=== PATIENT | female | born 1980 | race Caucasian/White ===

== ENCOUNTER 2016-03-21 | Outpatient (CLI) | payer MEDICAID ==
[2016-03-21 00:45] LABS: APPEARANCE,URINE CLEAR; BILIRUBIN,URINE NEGATIVE (NEGATIVE); GLUCOSE, URINE NEGATIVE (NEGATIVE); KETONES,URINE NEGATIVE (NEGATIVE); LEUKOCYTE ESTERASE,URINE NEGATIVE (NEGATIVE); NITRITE,URINE NEGATIVE (NEGATIVE); PROTEIN,URINE NEGATIVE (NEGATIVE); URINE SPECIFIC GRAVITY 1.012
[2016-03-21] MEDS ORDERED: HYDROXYZINE PAMOATE 50 MG CAPSULE PO ONE (01:08)
[2016-03-21] MEDS ORDERED: HYDROXYZINE PAMOATE 50 MG CAPSULE ONE (01:13)
[2016-03-21 01:31] LABS: URINE BARBITURATES SCREEN NEGATIVE; URINE METHADONE SCREEN NEGATIVE; URINE PHENCYCLIDINE SCREEN NEGATIVE
--- NOTE | 2016-03-21 04:46 | L&D Discharge Summary ---
OB Discharge Summary Datetime Report Generated by CPN: 03/21/2016 04:45 DISCHARGE DIAGNOSIS Diagnosis/Symptoms: Back Pain Treatment/Procedures Other: PO Hydration, Vistiril 50mg PO Gestation: 35.2 Number of Babies in Womb: 1 Parity: 2 DIET/ACTIVITY/RESTRICTIONS Diet: Regular Activity: Normal Activity TEACHING/INSTRUCTIONS/REFERRALS Instructions Given To: pt, fob Instructions Understood: Patient Verbalized Understanding; Support Person Verbalized Understanding Referrals: None Educational Materials- Other: The labor process DISCHARGE INFORMATION Discharged AMA: No Discharge Date/Time: 03/21/2016 01:32 Discharged To: Home (Annotations: Data stored by [facility] on behalf of user) Discharge Provider Name: Dr More Accompanied By: FOB Discharge Method: Ambulatory Condition: Stable FOLLOW UP INFORMATION Follow Up With: sezmi Follow Up On: As Scheduled Follow Up Phone Number: sezmi - Comments: Pt came to as LC for back pain and intermittent lower abdominal pain. SVE done per MD orders, 04/01/-2. Vistiril 50mg PO given with relief. Pt educated on labor process, educated on methods to relieve back pain. Pt and FOB verbalized understanding, demonstrated understanding.
--- NOTE | 2016-03-21 04:46 | L&D Flow Sheet ---
LD Flowsheet Datetime Report Generated by CPN: 03/21/2016 04:45 Datetime: 03/21/2016 01:35 Vital Signs Stage of : Antepartum (Ramila Errichiello, RN) Uterine Activity Monitor Mode: External; Palpation (Ramila Errichiello, RN) Monitor Interventions for UA: [place] Adjusted (Ramila Errichiello, RN) Frequency (min): x1 (Ramila Errichiello, RN) Duration (sec): 70 (Ramila Errichiello, RN) Resting Tone (Palpate): Relaxed (Ramila Errichiello, RN) Assessment A Monitor Mode: External US (Ramila Ishaichiello, RN) Monitor Interventions for FHR: Ultrasound Adjusted (Ramila Errichiello, RN) FHR Baseline Rate : 140 (Ramila Errichiello, RN) FHR Baseline Changes: No Baseline Change (Ramila Errichiello, RN) Variability: Moderate 6-25 bpm (Ramila Errichiello, RN) Accelerations: 15X15 (Ramila Errichiello, RN) Decelerations: None (Ramila Errichiello, RN) Pain Pain Scale: 2 (Ramila Green RN) Pain Goal: 1 (Ramila Green RN) Pain Assessment Comments: relief with Vistiril (Ramila Green RN) Maternal Comments: Pt feels relief with Visitiril 50mg PO, pt states pain is currently 2/5. Monitors turned off to prepare for pt discharge. (Ramila Green RN) Patient Care Patient Position/Activity: Right Tilt; Semi-Fowlers (Ramila Green RN) Communication Communication: RN at Bedside; RN Reviewed Strip (Ramila Green RN) LaborFlag: Antepartum (QS system process) Datetime: 03/21/2016 01:15 NBP Sys/Selena/Mean (mmHg): 101 (QS system process) : 58 (QS system process) : 73 (QS system process) Pulse: 82 (QS system process) Medications Medication Comments: Vistiril 50mg PO (Ramila Errichiello, RN) LaborFlag: Antepartum (QS system process) Datetime: 03/21/2016 01:07 Communication Communication: Call/Page Placed to Provider (Ramila Green RN) Communication Comments: Call placed to Dr More pt made aware of SVE and pt condition. Orders received for Vistiril 50mg PO, OK to d/c to home once pain resolved. (Ramila Green RN) Datetime: 03/21/2016 01:01 Vaginal Exam Dilatation (cm): 1.0 (Ramila Green RN) Effacement (%): 25 (Ramila Green RN) Station: -2 (Ramila Green RN) Exam by: Terri Frazier RN (Ramila Green RN) Cervix, Consistency: Moderate (Ramila Green RN) Cervix, Position: Posterior (Ramila Green RN) Datetime: 03/21/2016:00 Vital Signs Stage of : Antepartum (Ramila Peter, RN) Uterine Activity Monitor Mode: External (Ramila Green RN) Monitor Interventions for UA: [place] Adjusted (Ramila Green RN) Frequency (min): x1 (Ramila Green RN) Duration (sec): 120 (Ramila Green RN) Resting Tone (Palpate): Relaxed (Ramila Green RN) Assessment A Monitor Mode: External US (Ramila Errichiello, RN) FHR Baseline Rate : 145 (Ramila Errichiello, RN) FHR Baseline Changes: No Baseline Change (Ramila Errichiello, RN) Variability: Moderate 6-25 bpm (Ramila Errichiello, RN) Accelerations: 15X15 (Ramila Errichiello, RN) Decelerations: None (Ramila Errichiello, RN) Patient Care Patient Position/Activity: Right Tilt; Semi-Fowlers (Ramila Errichiello, RN) Communication Communication: RN Reviewed Strip (Ramila Errichiello, RN) Datetime: 03/21/2016 00:55 Communication Communication: Call/Page Placed to Provider (Ramila Green RN) Communication Comments: Call placed to Dr Derik MD made aware of pt complaints and EFM. Orders received to check pt's SVE. Orders carried out. (Ramila Green, RN) Datetime: 03/21/2016 00:44 NBP Sys/Selena/Mean (mmHg): 104 (QS system process) : 77 (QS system process) : 85 (QS system process) Pulse: 92 (QS system process) LaborFlag: Antepartum (QS system process) Datetime: 03/21/2016 00:39 Pain Pain Scale: 5 (Ramila Green RN) Pain Presence: Intermittent (Ramila Green RN) Pain Type: Cramping (Ramila Green RN) Pain Location: Abdomen (Ramila Green RN) Pain Goal: 1 (Ramila Green RN) Pain Relief Measures: Comfort Measures (Ramila Green RN) Maternal Assessment Level of Consciousness: Fully Conscious (Ramila Green RN) DTR's/Clonus: DTRs 2+; No Clonus (Ramila Green RN) Headache: Denies (Ramila Green RN) Breath Sounds, Left: Clear and Equal (Ramila Green RN) Breath Sounds, Right: Clear and Equal (Ramila Green RN) Nausea/Vomiting: Denies (Ramila Green RN) RUQ Epigastric Pain: Denies (Ramila Green RN) Comfort Measures: Hot/Cold Pack (Ramila Green RN) Teaching Instructional Method: Verbal; Patient Instructed; Family/Support Person Instructed; Verbalized Understanding (Ramila Green RN) Plan of Care: Plan of Care Discussed (Ramila Green RN) Unit Routine: [place] to Room; Call Khan; Bed; Unit Personnel; Monitoring; Safety/Fall Risk Prevention (Ramila Green RN) LaborFlag: Antepartum (QS system process) Datetime: 03/21/2016 00:37 Vital Signs Stage of : Antepartum (Ramila Errichiello, RN) Respirations: 16 (Ramila Errichiello, RN) Uterine Activity Monitor Mode: External; Palpation (Ramila Errichiello, RN) Monitor Interventions for UA: [place] Adjusted (Ramila Errichiello, RN) Frequency (min): 0 (Ramila Errichiello, RN) Resting Tone (Palpate): Relaxed (Ramila Errichiello, RN) Assessment A Monitor Mode: External US (Ramila Green RN) Monitor Interventions for FHR: Ultrasound Adjusted (Ramila Green RN) FHR Baseline Rate : 145 (Ramila Green RN) FHR Baseline Changes: No Baseline Change (Ramila Green RN) Variability: Moderate 6-25 bpm (Ramila Green RN) Accelerations: 15X15 (Ramila Green, RN) Decelerations: None (Ramila Green, RN) Pain Pain Scale: 5 (Ramila Green RN) Pain Presence: Intermittent (Ramila Green RN) Pain Type: Cramping; Ache (Ramila Green RN) Pain Location: Abdomen; Back (Ramila Green RN) Pain Goal: 1 (Ramila Green RN) Pain Relief Measures: Comfort Measures (Ramila Green RN) Pain Assessment Comments: pt c/o constant back pain and intermittent lower abdominal cramping (Ramila Green RN) Maternal Assessment Level of Consciousness: Fully Conscious (Ramila Green RN) DTR's/Clonus: DTRs 2+; No Clonus (Ramila Green RN) Headache: Denies (Ramila Green RN) Breath Sounds, Left: Clear and Equal (Ramila Green RN) Breath Sounds, Right: Clear and Equal (Ramila Green RN) Nausea/Vomiting: Denies (Ramila Green RN) RUQ Epigastric Pain: Denies (Ramila Green RN) Patient Care Patient Position/Activity: Right Tilt; Semi-Fowlers (Ramila Green RN) Comfort Measures: Breathing/Relaxation; Family Support (Ramila Green RN) Communication Communication: RN at Bedside; RN Reviewed Strip (Ramila Green RN) LaborFlag: Antepartum (QS system process)
--- NOTE | 2016-03-21 04:46 | L&D General Admission ---
General Admit Datetime Report Generated by CPN: 03/21/2016 04:45 INFORMATION Patient Age: 35 (03/01/2016 14:04:QS system process) EDC: 04/22/2016 00:00 (03/01/2016 14:06:Mercy Dale RN) : 3 (03/01/2016 14:06:Mercy Dale RN) Para: 2 (03/01/2016 15:32:Mercy Dale RN) Para: 2 (03/01/2016 14:06:Mercy Dale RN) Term: 2 (03/01/2016 14:06:Mercy Dale RN) : 0 (03/01/2016 14:06:Mercy Dale RN) Spontaneous Abortions: 0 (03/01/2016 14:06:Mercy Dale RN) Induced Abortions: 0 (03/01/2016 14:06:Mercy Dale RN) Livin (03/01/2016 14:06:Mercy Dale RN) Cesareans: 0 (03/01/2016 14:06:Mercy Dale RN) VBACs: 0 (03/01/2016 14:06:Mercy Dale RN) Ectopic: 0 (03/01/2016 14:06:Mercy Dale RN) Multiple Births: 0 (03/01/2016 14:06:Mercy Dale RN) Baby, Number in Womb: 1 (03/01/2016 15:32:Mercy Dale RN) Baby, Number in Womb: 1 (03/01/2016 14:06:Mercy Dale RN) CARE Primary Patent Legal Assistant: [facility] (03/01/2016 14:06:Mercy Dale RN) Month of 1st Visit: 09/2015 (03/01/2016 14:06:Mercy Dale RN) Adequate Care: Yes (03/01/2016 14:06:Mercy aDle RN) Prepregnancy Weight (lb): 130 (03/01/2016 14:06:Mercy Dale RN) Prepregnancy Weight (kg): 59.1 (03/01/2016 14:06:QS system process) Height (in): 67 (03/21/2016 00:50:QS system process) Height (in): 67 (03/01/2016 14:41:QS system process) ALLERGIES Medication Allergy: No (03/01/2016 14:06:Mercy Dale RN) Medication Allergies: No Known Allergies (03/21/2016) (03/21/2016 00:49:QS system process) Medication Allergies: No Known Allergies (03/01/2016) (03/01/2016 14:40:QS system process) Medication Allergies: No Known Allergies (01/06/2014) (03/01/2016 14:04:QS system process) Latex Allergy: No Latex Allergies (03/01/2016 14:06:Mercy Dale RN) Food Allergies: None (03/01/2016 14:06:Mercy Dale RN) Environmental Allergies: None (03/01/2016 14:06:Mercy Dale RN) COMMUNICATION Primary Language: Indian (03/01/2016 14:06:Mercy Dale RN) Medical Tx Preferred Language: Indian (03/01/2016 14:06:Mercy Dale RN) Indian Communication Ability: Speaks Indian; Reads Indian (03/01/2016 14:06:Ramila Green RN) Communication Barrier(s): None (03/01/2016 14:06:Ramila Green RN) DEMOGRAPHICS Address: [address] [place] [id number] (03/01/2016 14:04:QS system process) Zipcode: [address] (03/01/2016 14:04:QS system process) Home (03/01/2016 14:04:QS system process) SSN: [id number] (03/01/2016 14:04:QS system process) Next of Kin Name: SHERON YO (03/01/2016 14:04:QS system process) Next of Kin (03/01/2016 14:04:QS system process) Next of Kin Relationship: MO (03/01/2016 14:04:QS system process) Date of : 1980 (03/01/2016 14:04:QS system process) Marital Status: Legally (03/01/2016 14:04:QS system process) Sex: Female (03/01/2016 14:04:QS system process) Race: (03/01/2016 14:04:QS system process) Ethnicity: Non- or (03/01/2016 14:04:QS system process) Amish: None (03/01/2016 14:04:QS system process) Education: 9 (03/01/2016 14:06:Mercy Dale RN) FOB Involved: Yes (03/01/2016 14:06:Mercy Dale RN) Father of Baby Name: Brian Jacobson (03/01/2016 14:06:Mercy Dale RN) DRUG AND ALCOHOL USE Alcohol: No (03/01/2016 14:06:Mercy Dale RN) Cigarettes: Current Everyday Smoker. [id number] (03/01/2016 14:06:Mercy Dale RN) Average Cigarettes Smoked: < 5 per day (03/01/2016 14:06:Mercy Dale RN) Advised to Stop Smoking: Yes (03/01/2016 14:06:Mercy Dale RN) Cigarette Comments: 4/cigarettes daily. This RN provided education to pt, advised to quit (03/01/2016 14:06:Ramila Green RN) Marijuana: No (03/01/2016 14:06:Mercy Dale RN) Cocaine: No (03/01/2016 14:06:Mercy Dale RN) Other Illicit Drugs: No (03/01/2016 14:06:Mercy Dale RN) VACCINE HISTORY Influenza Vaccine: No (03/01/2016 14:06:Mercy Dale RN) Pneumococcal Vaccine: No (03/01/2016 14:06:Mercy Dale RN) Tetanus Vaccine: No (03/01/2016 14:06:Mercy Dale RN) Tdap Vaccine: No (03/01/2016 14:06:Mercy Dale RN) Hepatitis B Vaccine: No (03/01/2016 14:06:Mercy Dale RN) Feeding Preference: Both (03/01/2016 14:06:Mercy Dale RN) Benefit of Breast Feed Discussed: Yes (03/01/2016 14:06:Mercy Dale RN) Circumcision: N/A (03/01/2016 14:06:Mercy Dale RN) Classes Attended: No (03/01/2016 14:06:Mercy Dale RN) Tubal Ligation: No (03/01/2016 14:06:Mercy Dale RN) Tubal Authorization Signed: N/A (03/01/2016 14:06:Mercy Dale RN) Consent: N/A (03/01/2016 14:06:Mercy Dale RN) Consent Signed: N/A (03/01/2016 14:06:Mercy Dale RN) Pain Management Plans: Epidural (03/01/2016 14:06:Mercy Dale RN) Plans for Labor and Delivery: None (03/01/2016 14:06:Mercy Dale RN) Support Person: Brian Jacobson (03/01/2016 14:06:Mercy Dale RN) Support Person Relationship: Significant Other (03/01/2016 14:06:Mercy Dale RN) Cultural/Spritual Practice: No (03/01/2016 14:06:Mercy Dale RN) Spir/Cult Dietary Needs: No (03/01/2016 14:06:Mercy Dale RN) LIVING SITUATION/DISCHARGE PLAN Living Arrangements: House (03/01/2016 14:06:Mercy Dale RN) Adequate Access to:: Electric; Heat; Refrigeration; Plumbing/Running water; Phone; Transportation (03/01/2016 14:06:Mercy Dale RN) WIC Program: Yes (03/01/2016 14:06:Mercy Dale RN) Discharge Bucket Chucker Person: Brian Franco (03/01/2016 14:06:Mercy Dale RN) Person to Help after Discharge: Brian Franco (03/01/2016 14:06:Mercy Dale RN) Currently Using Commun Resources: Yes (03/01/2016 14:06:Mercy Dale RN) Specify Current Resource Used: WIC, [facility] (03/01/2016 14:06:Mercy Dale RN) Outside Agency/Science Faculty Member: No (03/01/2016 14:06:Mercy Dale RN) Car Seat for Discharge: Yes (03/01/2016 14:06:Mercy Dale RN) Adoption Requested: No (03/01/2016 14:06:Mercy Dale RN) Pt Contact w/infant Post : N/A (03/01/2016 14:06:Mercy Dale RN) LABS Blood Type: O Positive (03/01/2016 14:06:Mercy Dale RN) Antibody Screen: Negative (03/01/2016 14:06:Mercy Dale RN) Rho(G) this : Not Applicable (03/01/2016 14:06:Mercy Dale RN) Gonorrhea: Negative (03/01/2016 14:06:Mercy Dale RN) Chlamydia: Negative (03/01/2016 14:06:Mercy Dale RN) RPR/VDRL: Nonreactive (03/01/2016 14:06:Mercy Dale RN) HIV Exposure Test: Negative (03/01/2016 14:06:Mercy Dale RN) Hepatitis B: Negative (03/01/2016 14:06:Mercy Dale RN) Urine Culture: Positive (03/01/2016 14:06:Mercy Dale RN) Rubella: Immune (03/01/2016 14:06:Mercy Dale RN) Varicella: Non Susceptible (03/01/2016 14:06:Mercy Dale RN) OB/PREVIOUS HISTORY Previous Procedures: Ultrasound (03/01/2016 14:06:Mercy Dale RN) Current Procedures: Ultrasound (03/01/2016 14:06:Mercy Dale RN) History of Previous : No (03/01/2016 14:06:Mercy Dale RN) History of Gestational Diabetes: No (03/01/2016 14:06:Mercy Dale RN) History of PIH: No (03/01/2016 14:06:Mercy Dale RN) History of Incompetent Cervix: No (03/01/2016 14:06:Mercy Dale RN) History of Placenta Previa/Abrup: No (03/01/2016 14:06:Mercy Dale RN) History of Macrosomia: No (03/01/2016 14:06:Mercy Dale RN) History of IUGR: No (03/01/2016 14:06:Mercy Dale RN) History of Hemorrhage: No (03/01/2016 14:06:Mercy Dale RN) History of Loss/Stillborn: No (03/01/2016 14:06:Mercy Dale RN) History of : No (03/01/2016 14:06:Mercy Dale RN) History of D (Rh) Sensitization: No (03/01/2016 14:06:Mercy Dale RN) History Recurrent Loss/Stillborn: No (03/01/2016 14:06:Mercy Dale RN) History Depression/PP Depression: No (03/01/2016 14:06:Mercy Dale RN) History of Uterine Anomaly/JAQUELINE: No (03/01/2016 14:06:Mercy Dale RN) History of Infertility: No (03/01/2016 14:06:Mercy Dale RN) History of ART Treatment: No (03/01/2016 14:06:Mercy Dale RN) History of JAQUELINE: No (03/01/2016 14:06:Mercy Dale RN) Comments Obstetrical History: G1 - 01/1999 - , full term, 6lbs 12oz G2 - 12/1999 - , full term, 8lbs 1oz G3 - Current (03/01/2016 14:06:Mercy Dale RN) MEDICAL HISTORY Med Hx Diabetes: No (03/01/2016 14:06:Mercy Dale RN) Med Hx Hypertension: No (03/01/2016 14:06:Mercy Dale RN) Med Hx Heart Disease: Unknown (03/01/2016 14:06:Mercy Dale RN) Med Hx Autoimmune Disorder: No (03/01/2016 14:06:Mercy Dale RN) Med Hx Kidney Disease/UTI: No (03/01/2016 14:06:Mercy Dale RN) Med Hx Neurologic/Epilepsy: No (03/01/2016 14:06:Mercy Dale RN) Med Hx Psychiatric Disorders: No (03/01/2016 14:06:Mercy Dale RN) Med Hx Hepatitis/Liver Disease: No (03/01/2016 14:06:Mercy Dale RN) Med Hx Varicosities/Phlebitis: No (03/01/2016 14:06:Mercy Dale RN) Med Hx Thyroid Dysfunction: No (03/01/2016 14:06:Mercy Dale RN) Med Hx Trauma/Violence: No (03/01/2016 14:06:Mercy Dale RN) Med Hx Blood Transfusion: No (03/01/2016 14:06:Mercy Dale RN) Med Hx Pulmonary (Asthma,TB): No (03/01/2016 14:06:Mercy Dale RN) Med Hx Breast: No (03/01/2016 14:06:Mercy Dale RN) Med Hx LAB DIRECTOR Surgery: No (03/01/2016 14:06:Mercy Dale RN) Med Hx Hospitalization/Surgery: No (03/01/2016 14:06:Mercy Dale RN) Med Hx Anesthetic Complications: No (03/01/2016 14:06:Mercy Dale RN) Med Hx Abnormal Pap Smear: No (03/01/2016 14:06:Mercy Dale RN) Other Medical Diseases: No (03/01/2016 14:06:Mercy Dale RN) Med Hx Significant Family Hx: No (03/01/2016 14:06:Mercy Dale RN) Details of Med/Surg Hx: 2006 - Hx of cardiac cath for possible heart attack, MFM reviewed records from [place], [facility] for cardiac problems in this (03/01/2016 14:06:Mercy Dale RN) INFECTIOUS HISTORY Inf Hx Gonorrhea: No (03/01/2016 14:06:Mercy Dale RN) Inf Hx Chlamydia: Yes (03/01/2016 14:06:Mercy Dale RN) Inf Hx Syphilis: No (03/01/2016 14:06:Mercy Dale RN) Inf Hx HIV/AIDS: No (03/01/2016 14:06:Mercy Dale RN) Inf Hx Human Papilloma Virus: No (03/01/2016 14:06:Mercy Dale RN) Inf Hx Pt/Partner Genital Herpes: No (03/01/2016 14:06:Mercy Dale RN) Inf Hx Tuberculosis/Exposure: No (03/01/2016 14:06:Mercy Dale RN) Inf Hx Hepatitis B,C: No (03/01/2016 14:06:Mercy Dale RN) Inf Hx Rash or Viral Illness: No (03/01/2016 14:06:Mercy Dale RN) Details of Infectious Hx: 1999 - Hx Chlam, treated (03/01/2016 14:06:Mercy Dale RN) GENETIC HISTORY Gen Hx Age >=35 at ZACHARY: No (03/01/2016 14:06:Mercy Dale RN) Gen Hx Thalassemia: No (03/01/2016 14:06:Mercy Dale RN) Gen Hx Congenital Heart Defect: No (03/01/2016 14:06:Mercy Dale RN) Gen Hx Neural Tube Defect: No (03/01/2016 14:06:Mercy Dale RN) Gen Hx Down's Syndrome: No (03/01/2016 14:06:Mercy Dale RN) Gen Hx Brayan-Sachs: No (03/01/2016 14:06:Mercy Dale RN) Gen Hx Elaine: No (03/01/2016 14:06:Mercy Dale RN) Gen Hx Familial Dysautonomia: No (03/01/2016 14:06:Mercy Dale RN) Gen Hx Sickle Cell Disease/Trait: No (03/01/2016 14:06:Mercy Dale RN) Gen Hx Hemophilia/Blood Disorder: No (03/01/2016 14:06:Mercy Dale RN) Gen Hx Muscular Dystrophy: No (03/01/2016 14:06:Mercy Dale RN) Gen Hx Cystic Fibrosis: No (03/01/2016 14:06:Mercy Dale RN) Gen Hx Hunting[place] Chorea: No (03/01/2016 14:06:Mercy Dale RN) Gen Hx Mental Retardation/Autism: No (03/01/2016 14:06:Mercy Dale RN) Gen Hx Tested for Fragile X: No (03/01/2016 14:06:Mercy Dale RN) Gen Hx Other Inher/Chromosomal: No (03/01/2016 14:06:Mercy Dale RN) Gen Hx Maternal Metabolic DO: No (03/01/2016 14:06:Mercy Dale RN) Gen Hx Pt Father or FOB Defect: No (03/01/2016 14:06:Mercy Dale RN) Gen Hx Other Genetic History: No (03/01/2016 14:06:Mercy Dale RN) Gen Hx Drugs/Meds since LMP: Yes (03/01/2016 14:06:Mercy Dale RN) Gen Hx Medications: PNV (03/01/2016 14:06:Mercy Dale RN)
--- NOTE | 2016-03-21 04:46 | L&D Current Admission ---
Current Admit Datetime Report Generated by CPN: 03/21/2016 04:45 ADMISSION INFORMATION Chief Complaint: back pain, occasional abdominal cramping. (03/21/2016 00:39:Ramila Green RN) Chief Complaint: Uterine Cramping; Back Pain; Nausea (03/01/2016 14:49:Mercy Dale RN)
--- NOTE | 2016-03-21 04:46 | L&D Admission Assessment ---
LD ADM ASMT Datetime Report Generated by CPN: 03/21/2016 04:45 PATIENT ASSESSMENT Assessment Type: Admission Assessment (03/21/2016 00:39:Ramila Wellszuleyka, RN) WEIGHT Weight (lb): 152 (03/21/2016 00:50:QS system process) Weight (kg): 69.1 (03/21/2016 00:50:QS system process) Total Wt Gain (lb): 22 (03/21/2016 00:50:QS system process) Wt Gain (kg): 9.9 (03/21/2016 00:50:QS system process) BMI: 23.8 (03/21/2016 00:50:QS system process) PAIN Pain Scale: 2 (03/21/2016 01:35:Ramila Green RN) Pain Scale: 5 (03/21/2016 00:39:Ramila Green RN) Pain Scale: 5 (03/21/2016 00:37:Ramila Green RN) Pain Presence: Intermittent (03/21/2016 00:39:Ramila Green RN) Pain Presence: Intermittent (03/21/2016 00:37:Ramila Green RN) Pain Type: Cramping (03/21/2016 00:39:Ramila Green RN) Pain Type: Cramping; Ache (03/21/2016 00:37:Ramila Green RN) Pain Location: Abdomen (03/21/2016 00:39:Ramila Green RN) Pain Location: Abdomen; Back (03/21/2016 00:37:Ramila Green RN) Pain Goal: 1 (03/21/2016 01:35:Ramila Green RN) Pain Goal: 1 (03/21/2016 00:39:Ramila Green RN) Pain Goal: 1 (03/21/2016 00:37:Ramila Green RN) Pain Comments: relief with Vistiril (03/21/2016 01:35:Ramila Green RN) Pain Comments: pt c/o constant back pain and intermittent lower abdominal cramping (03/21/2016 00:37:Ramila Errmineello, RN) CONTRACTIONS Frequency (min): x1 (03/21/2016 01:35:Ramila Peter RN) Frequency (min): x1 (03/21/2016 01:00:Ramila Peter, RN) Frequency (min): 0 (03/21/2016 00:37:Ramila Peter RN) Duration (sec): 70 (03/21/2016 01:35:Ramila Peter RN) Duration (sec): 120 (03/21/2016 01:00:Ramila Peter RN) Resting Tone [place]rosky: Relaxed (03/21/2016 01:35:Ramila Peter RN) Resting Tone [place]rosky: Relaxed (03/21/2016 01:00:Ramila Peter RN) Resting Tone [place]rosky: Relaxed (03/21/2016 00:37:Ramila Russellello, RN) VAGINAL EXAM Dilatation (cm): 1.0 (03/21/2016 01:01:Ramila Green RN) Effacement (%): 25 (03/21/2016 01:01:Ramila Green RN) Station: -2 (03/21/2016 01:01:Ramila Green RN) NEURO Level of Consciousness: Fully Conscious (03/21/2016 00:39:Ramila Green RN) Level of Consciousness: Fully Conscious (03/21/2016 00:37:Ramila Green RN) DTR's/Clonus: DTRs 2+; No Clonus (03/21/2016 00:39:Ramila Green RN) DTR's/Clonus: DTRs 2+; No Clonus (03/21/2016 00:37:Ramila Green RN) Headache: Denies (03/21/2016 00:39:Ramila Green RN) Headache: Denies (03/21/2016 00:37:Ramila Green RN) Dizziness: No (03/21/2016 00:39:Ramila Green RN) Blurred Vision: No (03/21/2016 00:39:Ramila Green RN) Extremity Numbness/Tingling : None (03/21/2016 00:39:Ramila Green RN) Extremity Movement: Full Range of Motion (03/21/2016 00:39:Ramila Green RN) CARDIOVASCULAR Nailbeds: [place] (03/21/2016 00:39:Ramila Green RN) Capillary Refill: Less than 3 Seconds (03/21/2016 00:39:Ramila Green RN) Facial Edema: None (03/21/2016 00:39:Ramila Green RN) Nelida's Sign Left Leg: Negative (03/21/2016 00:39:Ramila Green RN) Nelida's Sign Right Leg: Negative (03/21/2016 00:39:Ramila Green RN) RESPIRATORY Respiratory Effort: Unlabored; Regular Rhythm; Equal Expansion (03/21/2016 00:39:Ramila Green RN) Breath Sounds, Left: Clear and Equal (03/21/2016 00:39:Ramila Green RN) Breath Sounds, Left: Clear and Equal (03/21/2016 00:37:Ramila Green RN) Breath Sounds, Right: Clear and Equal (03/21/2016 00:39:Ramila Green RN) Breath Sounds, Right: Clear and Equal (03/21/2016 00:37:Ramila Green RN) Cough Productivity: None (03/21/2016 00:39:Ramila Green RN) GASTROINTESTINAL Nausea/Vomiting: Denies (03/21/2016 00:39:Ramila Green RN) Nausea/Vomiting: Denies (03/21/2016 00:37:Ramila Green RN) Bowel Sounds: Normoactive; All Quadrants (03/21/2016 00:39:Ramila Green RN) RUQ Epigastric Pain: Denies (03/21/2016 00:39:Ramila Green RN) RUQ Epigastric Pain: Denies (03/21/2016 00:37:Ramila Green RN) Diet Type: Regular diet (03/21/2016 00:39:Ramila Green RN) Last Meal: 03/20/2016 23:30 (03/21/2016 00:39:Ramila Green RN) GENITOURINARY Bladder: Nondistended (03/21/2016 00:39:Ramila Green RN) Frequency of Urination: Yes (03/21/2016 00:39:Ramila Green RN) Urination Burning: No (03/21/2016 00:39:Ramila Green RN) CVA Tenderness: No (03/21/2016 00:39:Ramila Green RN) Vaginal Bleeding: None (03/21/2016 00:39:Ramila Green RN) Vaginal Discharge Color: N/A (03/21/2016 00:39:Ramila Green RN) INTEGUMENTARY Skin Color: Normal for Race (03/21/2016 00:39:Ramila Green RN) Skin Temperature: Warm (03/21/2016 00:39:Ramila Green RN) Skin Moisture: Dry (03/21/2016 00:39:Ramila Green RN) NOEMÍ SKIN ASSESSMENT Noemí Scale Sensory Perception: No Impairment- Responds to verbal commands. Has no sensory deficit which would limit ability to feel or voice pain or discomfort (03/21/2016 00:39:Ramila Green RN) Noemí Scale Moisture: Rarely Moist- Skin is usually dry. Linen only requires changing at routine intervals (03/21/2016 00:39:Ramila Green RN) Noemí Scale Activity: Walks Frequently- Walks outside the room at least twice a day and inside room at least every 2 hours during the day. (03/21/2016 00:39:Ramila Green RN) Noemí Scale Mobility: No Limitations- Makes major and frequent changes in position without assistance (03/21/2016 00:39:Ramila Green RN) Noemí Scale Nutrition: Excellent- Eats most of every meal. Never refuses a meal. Usually eats a total of 4 or more servings of meat and dairy products. Occasionally eats between meals. Does not require supplementation (03/21/2016 00:39:Ramila Green RN) Noemí Scale Friction and Shear: No Apparent Problem- Moves in bed and in chair independently and has sufficient muscle strength to lift up completely during move. Maintains good position in bed or chair at all times (03/21/2016 00:39:Ramila Green RN) Noemí Scale Total: 23 (03/21/2016 00:39:QS system process) Noemí Scale Risk: No Risk of Pressure Ulcer Noted at this Time (03/21/2016 00:39:QS system process) SUPPORT Family Support: Significant Other supportive, at bedside frequently (03/21/2016 00:39:Ramila Green RN) Emotional State: Calm/Relaxed (03/21/2016 00:39:Ramila Green RN) SAFETY Call Khan Within Reach: Yes (03/21/2016 00:39:Ramila Green RN) Side Rails Up: Yes (03/21/2016 00:39:Ramila Green RN) Bed Wheels Locked: Yes (03/21/2016 00:39:Ramila Green RN) Arm Bands Present: Yes (03/21/2016 00:39:Ramila Green RN) FALL SCREEN Fall Risk History of Falling: (0) No (03/21/2016 00:39:Ramila Green RN) Fall Risk Secondary Diagnosis: (0) No (03/21/2016 00:39:Ramila Green RN) Fall Risk Ambulatory Aid: (0) None/Bedrest/Wheelchair/Nurse Assist (03/21/2016 00:39:Ramila Green RN) Fall Risk IV Therapy: (0) No (03/21/2016 00:39:Ramila Green RN) Fall Risk Gait: (0) Normal/Bedrest/Immobile (03/21/2016 00:39:Ramila Green RN) Fall Risk Mental Status: (0) Oriented to Own Ability (03/21/2016 00:39:Ramila Green RN) Fall Risk Score: 0 (03/21/2016 00:39:QS system process) Fall Risk Score Definition: No Risk: No action required (03/21/2016 00:39:QS system process) BABY A FHR Baseline Rate (bpm) Baby A: 140 (03/21/2016 01:35:Ramila Green RN) FHR Baseline Rate (bpm) Baby A: 145 (03/21/2016 01:00:Ramila Green RN) FHR Baseline Rate (bpm) Baby A: 145 (03/21/2016 00:37:Ramila Green RN) Variability Baby A: Moderate 6-25 bpm (03/21/2016 01:35:Ramila Green RN) Variability Baby A: Moderate 6-25 bpm (03/21/2016 01:00:Ramila Green RN) Variability Baby A: Moderate 6-25 bpm (03/21/2016 00:37:Ramila Green RN) Accelerations Baby A: 15X15 (03/21/2016 01:35:Ramila Green RN) Accelerations Baby A: 15X15 (03/21/2016 01:00:Ramila Grene RN) Accelerations Baby A: 15X15 (03/21/2016 00:37:Ramila Green RN) Decelerations Baby A: None (03/21/2016 01:35:Ramila Green RN) Decelerations Baby A: None (03/21/2016 01:00:Ramila Green RN) Decelerations Baby A: None (03/21/2016 00:37:Ramila Green RN) ADDITIONAL COMMENTS Assessment Flag: Admission Assessment (03/21/2016 00:39:QS system process)
--- NOTE | 2016-03-21 04:46 | Antepartum Discharge Summary ---
Antepartum DC Datetime Report Generated by CPN: 03/21/2016 04:45 DIET/ACTIVITY/RESTRICTIONS Diet: Regular (03/21/2016 01:31:Ramila Errichiello, RN) Activity: Normal Activity (03/21/2016 01:31:Ramila Errichiello, RN) TEACHING/INSTRUCTIONS/REFERRALS Instructions Given To: pt, fob (03/21/2016 01:31:Ramila Ishaichiello, RN) Instructions Understood: Patient Verbalized Understanding; Support Person Verbalized Understanding (03/21/2016 01:31:Ramila Green RN) Referrals: None (03/21/2016 01:31:Ramila Green RN) Educational Materials- Other: The labor process (03/21/2016 01:31:Ramila Green RN) DISCHARGE INFORMATION Discharged AMA: No (03/21/2016 01:31:Ramila Green RN) Discharge Date/Time: 03/21/2016 01:32 (03/21/2016 01:31:Ramila Green RN) Discharge Provider Name: Dr More (03/21/2016 01:31:Ramila Green RN) Accompanied By: SMITH (03/21/2016 01:31:Ramila Green RN) Discharge Method: Ambulatory (03/21/2016 01:31:Ramila Green RN) Condition: Stable (03/21/2016 01:31:Ramila Green RN) FOLLOW UP INFORMATION Follow Up With: [facility] (03/21/2016 01:31:Ramila Green RN) Follow Up On: As Scheduled (03/21/2016 01:31:Ramila Green RN) Follow Up Phone Number: [facility] - (03/21/2016 01:31:Ramila Green RN) Comments: Pt came to LD as LC for back pain and intermittent lower abdominal pain. SVE done per MD orders, . Vistiril 50mg PO given with relief. Pt educated on labor process, educated on methods to relieve back pain. Pt and FOB verbalized understanding, demonstrated understanding. (03/21/2016 01:31:Ramila Green RN)
== END 2016-03-21 01:32 | disposition home or self-care (01) ==
LOC: EDSTATUS 00:19 → LC 00:22
PROVIDERS: ATTEND Obstetrics & Gynecology
PROC: 4A1HXCZ Monitoring of Products of Conception, Cardiac Rate, External Approach (ICD-10-PCS; principal; 2016-03-21)
DX: Z34.93 Encounter for supervision of normal pregnancy, unspecified, third trimester (principal); Z3A.35 35 weeks gestation of pregnancy
CPT/HCPCS: 59025; 81001; 80307; J3490

== ENCOUNTER 2016-04-15 19:52 | Inpatient (IN) | payer MEDICAID ==
--- NOTE | 2016-04-15 19:55 | Non Stress Test Report ---
Non Stress Test Datetime Report Generated by CPN: 04/15/2016 19:55 DEMOGRAPHIC EGA NST: 35.3 INDICATION Indication for Study: Ordered by Provider URINE RESULTS Urine Protein, NST: Negative Urine Ketones - NST: Negative Urine Glucose - NST: Negative Urine Blood - NST: Negative MONITORING Time on Monitor: 03/21/2016 00:35 Time off Monitor: 03/21/2016 01:35 NST Duration: 60 NST INTERVENTIONS NST Interventions: PO Hydration Physician Notified NST: Dr More BABY A: [id number] BABY A Movement : Present Contraction Frequency : x1 FHR Baseline : 145 Accelerations : 15X15 Decelerations : None Variability : Moderate 6-25bpm NST Review: Meets Criteria for Reactive NST NST Review and Verified By : Chalman, A. RN NST Results: Reactive NST COMMENTS NST Comments: Vistiril 50mg PO NST REPORT Report Trigger: Send Report
[2016-04-15] MEDS ORDERED: RINGERS SOLUTION,LACTATED 1,000 ML IV PRN (20:05)
[2016-04-15] MEDS ORDERED: RINGERS SOLUTION,LACTATED 300 ML IV ONE (20:05)
[2016-04-15] MEDS ORDERED: OXYTOCIN/NORMAL SALINE 1,000 ML IV PRN (20:05)
[2016-04-15 20:34] LABS: ABSOLUTE BASOPHILS # (AUTO) 0.1 10^3/uL (0.0-0.2); ABSOLUTE EOSINOPHILS # (AUTO) 0.1 10^3/uL (0.0-0.6); ABSOLUTE LYMPHOCYTES (AUTO) 1.7 10^3/uL (0.5-4.7); ABSOLUTE MONOCYTES (AUTO) 0.6 10^3/uL (0.1-1.4); ABSOLUTE NEUT (AUTO) 6.8 10^3/uL (1.7-8.2); BASOPHILS % (AUTO) 1.3 % (0-2); EOSINOPHILS % (AUTO) 1.6 % (0-6); HEMOGLOBIN 12.4 g/dL (12.0-15.5); HGB HCT DIFFERENCE 1.2; LYMPHOCYTES % (AUTO) 18.2 % (13-45); MEAN CORPUSCULAR HEMOGLOBIN 29.6 pg (27.0-33.4); MEAN CORPUSCULAR HGB CONC 34.5 g/dL (32.0-36.0); MEAN CORPUSCULAR VOLUME 86 fl (80-97); MONOCYTES % (AUTO) 6.1 % (3-13); RED CELL DISTRIBUTION WIDTH 13.5 % (11.5-14.0); SEGMENTED NEUTROPHILS % (AUTO) 72.8 % (42-78); WHITE BLOOD COUNT 9.4 10^3/uL (4.0-10.5)
[2016-04-15 20:35] LABS: APPEARANCE,URINE CLOUDY; BILIRUBIN,URINE NEGATIVE (NEGATIVE); GLUCOSE, URINE NEGATIVE (NEGATIVE); KETONES,URINE NEGATIVE (NEGATIVE); LEUKOCYTE ESTERASE,URINE LARGE (NEGATIVE); NITRITE,URINE NEGATIVE (NEGATIVE); PROTEIN,URINE NEGATIVE (NEGATIVE); URINE SPECIFIC GRAVITY 1.015
[2016-04-15 20:55] LABS: URINE BARBITURATES SCREEN NEGATIVE; URINE METHADONE SCREEN NEGATIVE; URINE OPIATES LOW NEGATIVE; URINE PHENCYCLIDINE SCREEN NEGATIVE
[2016-04-15] MEDS ORDERED: DINOPROSTONE 10 MG VAGINAL INSERT.SR ONE (21:35)
[2016-04-15] MEDS: DINOPROSTONE 10 MG VAGINAL INSERT.SR PV PRN (21:46)
--- NOTE | 2016-04-15 22:00 | L&D Flow Sheet ---
LD Flowsheet Datetime Report Generated by CPN: 04/15/2016 22:00 Datetime: 04/15/2016 21:47 NBP Sys/Selena/Mean (mmHg): 127 (QS system process) : 75 (QS system process) : 96 (QS system process) Pulse: 66 (QS system process) LaborFlag: Antepartum (QS system process) Datetime: 04/15/2016 21:15 NBP Sys/Selena/Mean (mmHg): 139 (QS system process) : 95 (QS system process) : 113 (QS system process) Pulse: 81 (QS system process) LaborFlag: Antepartum (QS system process) Datetime: 04/15/2016 21:10 Procedures: Consents Signed (Rachel Ledgerwood, RN) Datetime: 04/15/2016 21:09 Comments: pt sitting uo to sign consents (Rachel Ledgerwood, RN) Datetime: 04/15/2016 21:02 IV/Blood Work: IV Started; IV Bolus Started; New IV Bag Hung (Rachel Ledgerwood, RN) Patient Care Comments: 18 G Right forearm (Rachel Kingsley RN) Datetime: 04/15/2016 20:20 Pain Scale: 0 (Rachel Kingsley RN) Pain Presence: None/Denies (Rachel Kingsley, JOE) Vaginal Bleeding: None (aRchel Kingsley RN) Level of Consciousness: Fully Conscious (Rachel Kingsley, JOE) DTR's/Clonus: DTRs 2+; No Clonus (Rachel Kingsley, JOE) Headache: Denies (Rachel Kingsley, JOE) Breath Sounds, Left: Clear and Equal (Rachel Kingsley, JOE) Breath Sounds, Right: Clear and Equal (Rachel Kingsley, JOE) Nausea/Vomiting: Denies (Rachel Kingsley, JOE) RUQ Epigastric Pain: Denies (Rachel Kingsley, JOE) Instructional Method: Demo; Verbal; Patient Instructed (Rachel Kingsley, JOE) Plan of Care: Plan of Care Discussed; Vaginal Delivery; Induction (Rachel Kingsley, JOE) Unit Routine: [place] to Room; Call Khan; Bed; Visiting Policy; Waiting Areas; Handwashing; Monitoring; Safety/Fall Risk Prevention; Bathroom Privileges (Rachel Kingsley, JOE) LaborFlag: Antepartum (QS system process) Datetime: 04/15/2016 20:09 Patient Position/Activity: Left Tilt (Rachel Kingsley RN)
[2016-04-16] MEDS ORDERED: ZOLPIDEM TARTRATE 5 MG TABLET PO ONE (00:15)
[2016-04-16] MEDS ORDERED: ZOLPIDEM TARTRATE 5 MG TABLET ONE (00:18)
[2016-04-16] MEDS ORDERED: ACETAMINOPHEN 325 MG TABLET PO ONE (01:55)
[2016-04-16] MEDS ORDERED: ACETAMINOPHEN 325 MG TABLET ONE (01:59)
[2016-04-16] MEDS ORDERED: NALBUPHINE HCL INJ 10 MG/1 ML AMPULE INJ ONE (05:04)
[2016-04-16] MEDS ORDERED: PROMETHAZINE HCL INJ 25 MG/1 ML VIAL IV ONE (05:05)
[2016-04-16] MEDS ORDERED: OXYTOCIN/NORMAL SALINE 20 UNIT/1,000 ML RTUINJ IV PRN (05:07)
[2016-04-16] MEDS ORDERED: PROMETHAZINE HCL INJ 25 MG/1 ML VIAL ONE (05:13)
[2016-04-16] MEDS ORDERED: NALBUPHINE HCL INJ 10 MG/1 ML AMPULE ONE (05:14)
[2016-04-16] MEDS: DINOPROSTONE 10 MG VAGINAL INSERT.SR PV PRN ×2 (05:45→05:46)
[2016-04-16] MEDS ORDERED: LIDOCAINE 1% INJ-PF (10 MG/ML) 30 ML SDV ONE (07:28)
[2016-04-16] MEDS ORDERED: MISOPROSTOL 0.2 MG TABLET ONE (07:28)
[2016-04-16] MEDS ORDERED: OXYTOCIN/NORMAL SALINE 20 UNIT/1,000 ML RTUINJ ONE (07:28)
[2016-04-16] MEDS ORDERED: BENZOCAINE/MENTHOL AEROSOL SPRAY 56 ML TOP PRN (07:47)
[2016-04-16] MEDS ORDERED: DIBUCAINE 1% OINTMENT 28 GM TP PRN (07:47)
[2016-04-16] MEDS ORDERED: MEASLES,MUMPS&RUBELLA VACC/PF 0.5 ML VIAL SUBCUT PRN (07:47)
[2016-04-16] MEDS ORDERED: OXYTOCIN/NORMAL SALINE 1,000 ML IV PRN (07:47)
[2016-04-16] MEDS ORDERED: ZOLPIDEM TARTRATE 5 MG TABLET PO PRN (07:47)
[2016-04-16] MEDS ORDERED: DIPH/PERTUSS(ACELL)/TETANUS VAC/PF 0.5 ML SYR (>=10YO) IM PRN (07:47)
--- NOTE | 2016-04-16 08:00 | L&D Flow Sheet ---
LD Flowsheet Datetime Report Generated by CPN: 04/16/2016 08:00 Datetime: 04/16/2016 07:30 Stage 2 Comments: Delivery liveborn female over intact perineum. Placed on maternal abdomen, dried and stimulated with spontaneous lusty cry noted. Cord clamped and cut by fob, placed skin to skin on maternal chest ([facility]) Datetime: 04/16/2016 07:28 Dilatation (cm): 10.0 ([facility]) Effacement (%): 100 ([place], RNC) Station: 3 ([place], RNC) Exam by: Wyatt Haley ([facility], RNC) Pushing: Involuntary Pushing ([place], RNC) Pushing Position: Pushing with Contractions (Lyn [place], RNC) Pushing Progress: with Pushing (Lyn [place], RNC) Datetime: 04/16/2016 07:25 Patient Care Comments: in bathroom, called out stating pt urge to push. Assisted to bed with moderate bloody show and perineal bulging noted. Provider Wyatt Haley CNM at bedside sve completed C/C/ +3 with presenitng part noted. RN at bedside attempting to locate fhr. ([facility], RNC) Datetime: 04/16/2016 07:19 I/O Interventions: Up to BR (Magy Aguilera RN) Datetime: 04/16/2016 07:17 Communication: Report Given to @ [facility] Datetime: 04/16/2016 07:16 NBP Sys/Selena/Mean (mmHg): 159 (QS system process) : 79 (QS system process) : 109 (QS system process) Pulse: 55 (QS system process) LaborFlag: Antepartum (QS system process) Datetime: 04/16/2016 07:15 Monitor Mode: External; Palpation (Magy Ale, RN) Frequency (min): 2-3 (Magy Ale, RN) Quality: Moderate (Magy Ale, RN) Duration (sec): 60-90 (Magy Ale, RN) Resting Tone (Palpate): Relaxed (Magy Ale, RN) Monitor Mode: External US (Magy Ale, RN) FHR Baseline Rate : 125 (Magy Ale, RN) Variability: Moderate 6-25 bpm (Magy Ale, RN) Accelerations: None (Magy Ale, RN) Decelerations: None (Magy Ale, RN) Datetime: 04/16/2016 07:14 Comments: pt laying on her side, FHR monitor tracing maternal HR (Magy Ale, RN) Communication: RN at Bedside (Magy Ale, RN) Datetime: 04/16/2016 07:00 Monitor Mode: External (Patti Minh, RN) Frequency (min): 2-4 (Patti Minh, RN) Quality: Moderate (Patti Minh, RN) Duration (sec): 50-80 (Patti Minh, RN) Pattern: Normal: <= 5 Contractions in 10 Minutes (Patti Minh, RN) Resting Tone (Palpate): Relaxed (Patti Minh, RN) Monitor Mode: External US (Patti Minh, RN) FHR Baseline Rate : 130 (Patti Minh, RN) FHR Baseline Changes: No Baseline Change (Patti Minh, RN) Variability: Moderate 6-25 bpm (Patti Minh, RN) Accelerations: None (Patti Minh, RN) Decelerations: Early (Patti Minh, RN) Datetime: 04/16/2016 06:47 NBP Sys/Selena/Mean (mmHg): 136 (QS system process) : 71 (QS system process) : 96 (QS system process) Pulse: 56 (QS system process) LaborFlag: Antepartum (QS system process) Datetime: 04/16/2016 06:30 Monitor Mode: External (Patti Minh, RN) Frequency (min): 1-3 (Patti Minh, RN) Quality: Moderate (Patti Minh, RN) Duration (sec): 50-70 (Patti Minh, RN) Pattern: Normal: <= 5 Contractions in 10 Minutes (Patti Minh, RN) Resting Tone (Palpate): Relaxed (Patti Minh, RN) Monitor Mode: External US (Patti Wilkinson, RN) FHR Baseline Rate : 135 (Patti Minh, RN) FHR Baseline Changes: No Baseline Change (Patti Minh, RN) Variability: Moderate 6-25 bpm (Patti Minh, RN) Accelerations: None (Patti Minh, RN) Decelerations: Early (Patti Minh, RN) Datetime: 04/16/2016 06:16 NBP Sys/Selena/Mean (mmHg): 144 (QS system process) : 82 (QS system process) : 107 (QS system process) Pulse: 64 (QS system process) LaborFlag: Antepartum (QS system process) Datetime: 04/16/2016 06:00 Monitor Mode: External; Palpation (Rachel Kingsley, RN) Frequency (min): 2-4.5 (Rachel Sancho, RN) Quality: Mild/Moderate (Rachel Ledgerwood, RN) Duration (sec): 50-90 (Rachel Ledshubhamwood, RN) Duration Criteria: Less than Two 120 Second Contractions (Rachel Ledgerwood, RN) Pattern: Normal: <= 5 Contractions in 10 Minutes (Rachel Ledgerwood, RN) Resting Tone (Palpate): Relaxed (Rachel Ledgerwood, RN) Monitor Mode: External US (Rachel Ledgerwood, RN) FHR Baseline Rate : 135 (Rachel Ledgerwood, RN) FHR Baseline Changes: No Baseline Change (Rachel Ledgerwood, RN) Variability: Moderate 6-25 bpm (Rachel Ledgerwood, RN) Accelerations: None (Rachel Ledgerwood, RN) Decelerations: None (Rachel Ledgerwood, RN) Datetime: 04/16/2016 05:48 NBP Sys/Selena/Mean (mmHg): 131 (QS system process) : 68 (QS system process) : 93 (QS system process) Pulse: 56 (QS system process) Respirations: 16 (Rachel Ledgerwood, RN) LaborFlag: Antepartum (QS system process) Datetime: 04/16/2016 05:30 Monitor Mode: External; Palpation (Rachel Ledgerwood, RN) Frequency (min): irreg (Rachel Ledgerwood, RN) Quality: Mild (Rachel Ledgerwood, RN) Duration (sec): 50-90 (Rachel Ledgerwood, RN) Duration Criteria: Less than Two 120 Second Contractions (Rachel Ledgerwood, RN) Pattern: Normal: <= 5 Contractions in 10 Minutes (Rachel Ledgerwood, RN) Resting Tone (Palpate): Relaxed (Rachel Ledgerwood, RN) Monitor Mode: External US (Rachel Ledgerwood, RN) FHR Baseline Rate : 135 (Rachel Ledgerwood, RN) FHR Baseline Changes: No Baseline Change (Rachel Ledgerwood, RN) Variability: Moderate 6-25 bpm (Rachel Ledgerwood, RN) Accelerations: 15X15 (Rachel Ledgerwood, RN) Decelerations: None (Rachel Ledgerwood, RN) Datetime: 04/16/2016 05:20 Medication Comments: Cervidil out per Dr. Smith (Rachel Ledgerwood, RN) Datetime: 04/16/2016 05:16 NBP Sys/Selena/Mean (mmHg): 130 (QS system process) : 60 (QS system process) : 86 (QS system process) Pulse: 63 (QS system process) LaborFlag: Antepartum (QS system process) Datetime: 04/16/2016 05:15 Analgesics/Sedatives: Nubain (mg) @ 10; Phenergan (mg) @ 12.5 (Rachel Kingsley, JOE) Datetime: 04/16/2016 05:03 Communication: Provider Orders Received (Rachel Kingsley RN) Communication Comments: Dr Smith was notified via phone of pts complaints of pain. Order received for Nubain 10 mg and Phenergan 12.5 IV NOW. Order received to start Pitocin at 7 am. (Rachel Kingsley RN) Datetime: 04/16/2016 05:00 Monitor Mode: External; Palpation (Rachel Ledgerwood, RN) Frequency (min): irreg (Rachel Ledgerwood, RN) Quality: Mild (Rachel Ledgerwood, RN) Duration (sec): 60-80 (Rachel Ledgerwood, RN) Duration Criteria: Less than Two 120 Second Contractions (Rachel Ledgerwood, RN) Pattern: Normal: <= 5 Contractions in 10 Minutes (Rachel Ledgerwood, RN) Resting Tone (Palpate): Relaxed (Rachel Ledgerwood, RN) Monitor Mode: External US (Rachel Ledgerwood, RN) FHR Baseline Rate : 130 (Rachel Ledgerwood, RN) FHR Baseline Changes: No Baseline Change (Rachel Ledgerwood, RN) Variability: Moderate 6-25 bpm (Rachel Ledgerwood, RN) Accelerations: None (Rachel Ledgerwood, RN) Decelerations: None (Rachel Ledgerwood, RN) Datetime: 04/16/2016 04:59 Dilatation (cm): 2.5 (Rachel Ledgerwood, RN) Effacement (%): 60 (Rachel Ledgerwood, RN) Station: -2 (Rachel Ledgerwood, RN) Exam by: Arlene Kingsley RN (Rachel Ledgerwood, RN) Datetime: 04/16/2016 04:50 Membrane Status: Ruptured (Rachel Ledgerwood, RN) Membranes Rupture Method: Spontaneous (Rachel Ledgerwood, RN) Amniotic Fluid Color: Clear (Rachel Ledgerwood, RN) Amniotic Fluid Amount: Small (Rachel Ledgerwood, RN) Amniotic Fluid Odor: Normal (Rachel Ledgerwood, RN) Datetime: 04/16/2016 04:30 Monitor Mode: External (Jailene Pool, RN) Frequency (min): irregular (Jailene Pool, RN) Quality: Mild (Jailene Pool, RN) Duration (sec): 50-70 (Jailene Pool, RN) Pattern: Normal: <= 5 Contractions in 10 Minutes (Jailene Pool, RN) Resting Tone (Palpate): Relaxed (Jailene Pool, RN) Monitor Mode: External US (Jailene Pool, RN) FHR Baseline Rate : 125 (Jailene Pool, RN) FHR Baseline Changes: No Baseline Change (Jailene Pool, RN) Variability: Moderate 6-25 bpm (Jailene Pool, RN) Accelerations: 15X15 (Jailene Pool, RN) Decelerations: None (Jailene Pool, RN) Communication: RN Reviewed Strip (Jailene Pool, RN) Datetime: 04/16/2016 04:17 NBP Sys/Selena/Mean (mmHg): 114 (QS system process) : 69 (QS system process) : 86 (QS system process) Pulse: 68 (QS system process) LaborFlag: Antepartum (QS system process) Datetime: 04/16/2016 04:00 Monitor Mode: External (Jailene Pool, RN) Frequency (min): none (Jailene Pool, RN) Resting Tone (Palpate): Relaxed (Jailene Pool, RN) Monitor Mode: External US (Jailene Pool, RN) FHR Baseline Rate : 140 (Jailene Pool, RN) FHR Baseline Changes: No Baseline Change (Jailene Pool, RN) Variability: Moderate 6-25 bpm (Jailene Pool, RN) Accelerations: None (Jailene Pool, RN) Decelerations: None (Jailene Pool, RN) Communication: RN Reviewed Strip (Jailene Pool, RN) Datetime: 04/16/2016 03:46 NBP Sys/Selena/Mean (mmHg): 115 (QS system process) : 58 (QS system process) : 83 (QS system process) Pulse: 78 (QS system process) LaborFlag: Antepartum (QS system process) Datetime: 04/16/2016 03:30 Stage of : Antepartum (Jailene Pool, RN) Monitor Mode: External (Jailene Pool, RN) Frequency (min): irritability (Jailene Pool, RN) Pattern: Normal: <= 5 Contractions in 10 Minutes (Jailene Pool, RN) Resting Tone (Palpate): Relaxed (Jailene Pool, RN) Monitor Mode: External US (Jailene Pool, RN) FHR Baseline Rate : 145 (Jailene Pool, RN) FHR Baseline Changes: No Baseline Change (Jailene Pool, RN) Variability: Moderate 6-25 bpm (Jailene Pool, RN) Accelerations: 15X15 (Jailene Pool, RN) Decelerations: None (Jailene Pool, RN) Communication: RN Reviewed Strip (Jailene Pool, RN) Datetime: 04/16/2016 03:25 I/O Interventions: Up to BR (Jailene Pool, RN) Datetime: 04/16/2016 03:16 NBP Sys/Selena/Mean (mmHg): 120 (QS system process) : 67 (QS system process) : 87 (QS system process) Pulse: 59 (QS system process) LaborFlag: Antepartum (QS system process) Datetime: 04/16/2016 03:00 Monitor Mode: External; Palpation (Rachel Ledgerwood, RN) Frequency (min): irritability (Rachel Ledgerwood, RN) Quality: Mild (Rachel Ledgerwood, RN) Resting Tone (Palpate): Relaxed (Rachel Ledgerwood, RN) Monitor Mode: External US (Rachel Ledgerwood, RN) FHR Baseline Rate : 145 (Rachel Ledgerwood, RN) FHR Baseline Changes: No Baseline Change (Rachel Ledgerwood, RN) Variability: Moderate 6-25 bpm (Rachel Ledgerwood, RN) Accelerations: 15X15 (Rachel Ledgerwood, RN) Decelerations: None (Rachel Ledgerwood, RN) Datetime: 04/16/2016 02:46 NBP Sys/Selena/Mean (mmHg): 122 (QS system process) : 69 (QS system process) : 88 (QS system process) Pulse: 61 (QS system process) LaborFlag: Antepartum (QS system process) Datetime: 04/16/2016 02:30 Monitor Mode: External; Palpation (Rachel Ledgerwood, RN) Frequency (min): irritability (Rachel Ledgerwood, RN) Resting Tone (Palpate): Relaxed (Rachel Ledgerwood, RN) Monitor Mode: External US (Rachel Ledgerwood, RN) FHR Baseline Rate : 145 (Rachel Ledgerwood, RN) FHR Baseline Changes: No Baseline Change (Rachel Ledgerwood, RN) Variability: Moderate 6-25 bpm (Rachel Ledgerwood, RN) Accelerations: 15X15 (Rachel Ledgerwood, RN) Decelerations: None (Rachel Ledgerwood, RN) Datetime: 04/16/2016 02:17 NBP Sys/Seelna/Mean (mmHg): 120 (QS system process) : 67 (QS system process) : 87 (QS system process) Pulse: 61 (QS system process) LaborFlag: Antepartum (QS system process) Datetime: 04/16/2016 02:09 Analgesics/Sedatives: Tylenol (mg) @ 650 (Rachel Ledgerwood, RN) Datetime: 04/16/2016 02:00 Monitor Mode: External; Palpation (Rachel Ledgerwood, RN) Frequency (min): irritability (Rachel Ledgerwood, RN) Quality: Mild (Rachel Ledgerwood, RN) Resting Tone (Palpate): Relaxed (Rachel Ledgerwood, RN) Monitor Mode: External US (Rachel Ledgerwood, RN) FHR Baseline Rate : 155 (Rachel Ledgerwood, RN) FHR Baseline Changes: No Baseline Change (Rachel Ledgerwood, RN) Variability: Moderate 6-25 bpm (Rachel Ledgerwood, RN) Accelerations: 15X15 (Rachel Ledgerwood, RN) Decelerations: None (Rachel Ledgerwood, RN) Datetime: 04/16/2016 01:50 Temperature (F): 97.8 (Rachel Ledgerwood, RN) Temperature (C): 36.6 (QS system process) Temperature Route: Oral (Rachel Ledgerwood, RN) Pain Assessment Comments: Pt. requests Tylenol for her back pain. (Rachel Ledgerwood, RN) LaborFlag: Antepartum (QS system process) Datetime: 04/16/2016 01:48 Communication: RN at Bedside (Rachel Ledgerwood, RN) Datetime: 04/16/2016 01:30 Monitor Mode: External; Palpation (Rachel Ledgerwood, RN) Frequency (min): irritability (Rachel Ledgerwood, RN) Quality: Mild (Rachel Ledgerwood, RN) Resting Tone (Palpate): Relaxed (Rachel Ledgerwood, RN) Monitor Mode: External US (Rachel Ledgerwood, RN) FHR Baseline Rate : 155 (Rachel Ledgerwood, RN) FHR Baseline Changes: No Baseline Change (Rachel Ledgerwood, RN) Variability: Moderate 6-25 bpm (Rachel Ledgerwood, RN) Accelerations: 15X15 (Rachel Ledgerwood, RN) Decelerations: None (Rachel Ledgerwood, RN) Datetime: 04/16/2016 01:16 NBP Sys/Selena/Mean (mmHg): 118 (QS system process) : 83 (QS system process) : 95 (QS system process) Pulse: 82 (QS system process) LaborFlag: Antepartum (QS system process) Datetime: 04/16/2016 01:00 Monitor Mode: External; Palpation (Rachel Ledgerwood, RN) Frequency (min): irritability (Rachel Ledgerwood, RN) Quality: Mild (Rachel Ledgerwood, RN) Resting Tone (Palpate): Relaxed (Rachel Ledgerwood, RN) Monitor Mode: External US (Rachel Ledgerwood, RN) FHR Baseline Rate : 140 (Rachel Ledgerwood, RN) FHR Baseline Changes: No Baseline Change (Rachel Ledgerwood, RN) Variability: Moderate 6-25 bpm (Rachel Ledgerwood, RN) Accelerations: 15X15 (Rachel Ledgerwood, RN) Decelerations: None (Rachel Ledgerwood, RN) Datetime: 04/16/2016 00:46 NBP Sys/Selena/Mean (mmHg): 135 (QS system process) : 75 (QS system process) : 99 (QS system process) Pulse: 67 (QS system process) LaborFlag: Antepartum (QS system process) Datetime: 04/16/2016 00:30 Monitor Mode: External; Palpation (Rachel Ledgerwood, RN) Frequency (min): occas (Rachel Ledgerwood, RN) Quality: Mild (Rachel Ledgerwood, RN) Duration (sec): 50-70 (Rachel Ledgerwood, RN) Duration Criteria: Less than Two 120 Second Contractions (Rachel Ledgerwood, RN) Pattern: Normal: <= 5 Contractions in 10 Minutes (Rachel Ledgerwood, RN) Resting Tone (Palpate): Relaxed (Rachel Ledgerwood, RN) Monitor Mode: External US (Rachel Ledgerwood, RN) FHR Baseline Rate : 135 (Rachel Ledgerwood, RN) FHR Baseline Changes: No Baseline Change (Rachel Ledgerwood, RN) Variability: Moderate 6-25 bpm (Rachel Ledgerwood, RN) Accelerations: 10X10 (Rachel Ledgerwood, RN) Decelerations: None (Rachel Ledgerwood, RN) Datetime: 04/16/2016 00:23 Analgesics/Sedatives: Ambien (mg) @ 10 (Rachel Kingsley, RN) Datetime: 04/16/2016 00:16 NBP Sys/Selena/Mean (mmHg): 141 (QS system process) : 77 (QS system process) : 104 (QS system process) Pulse: 62 (QS system process) Respirations: 15 (Rachel Kingsley, JOE) LaborFlag: Antepartum (QS system process) Datetime: 04/16/2016 00:12 Pain Presence: Constant (Rachel Kingsley, RN) Pain Type: Sharp (Rachel Kingsley, RN) Pain Location: Back (Rachel Kingsley, RN) Pain Relief Measures: Comfort Measures (Rachel Ledgerwood, RN) Comfort Measures: Hot/Cold Pack (Rachel Ledgerwood, RN) LaborFlag: Antepartum (QS system process) Datetime: 04/16/2016 00:00 Monitor Mode: External; Palpation (Rachel Ledgerwood, RN) Frequency (min): occas (Rachel Ledgerwood, RN) Quality: Mild (Rachel Ledgerwood, RN) Duration (sec): 50-70 (Rachel Ledgerwood, RN) Duration Criteria: Less than Two 120 Second Contractions (Rachel Ledgerwood, RN) Pattern: Normal: <= 5 Contractions in 10 Minutes (Rachel Ledgerwood, RN) Resting Tone (Palpate): Relaxed (Rachel Ledgerwood, RN) Monitor Mode: External US (Rachel Ledgerwood, RN) FHR Baseline Rate : 135 (Rachel Ledgerwood, RN) FHR Baseline Changes: No Baseline Change (Rachel Ledgerwood, RN) Variability: Moderate 6-25 bpm (Rachel Ledgerwood, RN) Accelerations: 10X10 (Rachel Ledgerwood, RN) Decelerations: None (Rachel Ledgerwood, RN) Datetime: 04/15/2016 23:46 NBP Sys/Selena/Mean (mmHg): 109 (QS system process) : 58 (QS system process) : 76 (QS system process) Pulse: 68 (QS system process) LaborFlag: Antepartum (QS system process) Datetime: 04/15/2016 23:30 Monitor Mode: External; Palpation (Rachel Ledgerwood, RN) Frequency (min): occas (Rachel Ledgerwood, RN) Quality: Mild (Rachel Ledgerwood, RN) Duration (sec): 60-70 (Rachel Ledgerwood, RN) Duration Criteria: Less than Two 120 Second Contractions (Rachel Ledgerwood, RN) Pattern: Normal: <= 5 Contractions in 10 Minutes (Rachel Ledgerwood, RN) Resting Tone (Palpate): Relaxed (Rachel Ledgerwood, RN) Monitor Mode: External US (Rachel Ledgerwood, RN) FHR Baseline Rate : 135 (Rachel Ledgerwood, RN) FHR Baseline Changes: No Baseline Change (Rachel Ledgerwood, RN) Variability: Moderate 6-25 bpm (Rachel Ledgerwood, RN) Accelerations: 10X10 (Rachel Ledgerwood, RN) Decelerations: None (Rachel Ledgerwood, RN) Datetime: 04/15/2016 23:27 Monitor Interventions for FHR: Ultrasound Adjusted (Rachel Kingsley, RN) Communication: RN at Bedside (Rachel Solgerwood, RN) Datetime: 04/15/2016 23:16 NBP Sys/Selena/Mean (mmHg): 121 (QS system process) : 55 (QS system process) : 75 (QS system process) Pulse: 60 (QS system process) LaborFlag: Antepartum (QS system process) Datetime: 04/15/2016 23:00 Monitor Mode: External; Palpation (Rachel Kingsley, RN) Frequency (min): irritability (Rachel Solgerwood, RN) Resting Tone (Palpate): Relaxed (Rachel Solgerwood, RN) Monitor Mode: External US (Rachel Kingsley, RN) FHR Baseline Rate : 140 (Rachel Kingsley, RN) FHR Baseline Changes: No Baseline Change (Rachel Ledgerwood, RN) Variability: Moderate 6-25 bpm (Rachel Ledgerwood, RN) Accelerations: 15X15 (Rachel Ledgerwood, RN) Decelerations: None (Rachel Ledgerwood, RN) Datetime: 04/15/2016 22:57 Monitor Interventions for FHR: Ultrasound Adjusted (Rachel Ledgerwood, RN) Communication: RN at Bedside (Rachel Solgerwood, RN) Datetime: 04/15/2016 22:46 NBP Sys/Selena/Mean (mmHg): 108 (QS system process) : 67 (QS system process) : 81 (QS system process) Pulse: 60 (QS system process) LaborFlag: Antepartum (QS system process) Datetime: 04/15/2016 22:30 Monitor Mode: External; Palpation (Rachel Ledgerwood, RN) Frequency (min): occas (Rachel Ledgerwood, RN) Quality: Mild (Rachel Ledgerwood, RN) Duration (sec): 110 (Rachel Ledgerwood, RN) Pattern: Normal: <= 5 Contractions in 10 Minutes (Rachel Ledgerwood, RN) Resting Tone (Palpate): Relaxed (Rachel Ledgerwood, RN) Monitor Mode: External US (Rachel Ledgerwood, RN) FHR Baseline Rate : 135 (Rachel Ledgerwood, RN) FHR Baseline Changes: No Baseline Change (Rachel Ledgerwood, RN) Variability: Moderate 6-25 bpm (Rachel Ledgerwood, RN) Accelerations: 10X10 (Rachel Ledgerwood, RN) Decelerations: None (Rachel Ledgerwood, RN) Datetime: 04/15/2016 22:16 NBP Sys/Sleena/Mean (mmHg): 99 (QS system process) : 57 (QS system process) : 73 (QS system process) Pulse: 68 (QS system process) LaborFlag: Antepartum (QS system process) Datetime: 04/15/2016 22:00 Monitor Mode: External; Palpation (Rachel Kingsley, RN) Frequency (min): irritability (Rachel Kingsley, RN) Resting Tone (Palpate): Relaxed (Rachel Kingsley, RN) Monitor Mode: External US (Rachel Kingsley, RN) FHR Baseline Rate : 135 (Rachel Ebenezergergary, RN) FHR Baseline Changes: No Baseline Change (Rachel Ebenezergergary, RN) Variability: Moderate 6-25 bpm (Rachel Ledgerwood, RN) Accelerations: None (Rachel Ledgerwood, RN) Decelerations: None (Rachel Ledgergary, RN)
--- NOTE | 2016-04-16 10:00 | L&D Flow Sheet ---
LD Flowsheet Datetime Report Generated by CPN: 04/16/2016 10:00 Datetime: 04/16/2016 09:30 Respirations: 16 (Magy Aguilera RN) Temperature (F): 98.3 (Magy Aguilera RN) Temperature (C): 36.8 (QS system process) Pain Scale: 0 (Magy Aguilera RN) Pain Presence: None/Denies (Magy Aguilera RN) Pain Type: N/A (Magy Aguilera RN) LaborFlag: Antepartum (QS system process) Datetime: 04/16/2016 09:16 NBP Sys/Selena/Mean (mmHg): 111 (QS system process) : 67 (QS system process) : 75 (QS system process) Pulse: 63 (QS system process) LaborFlag: Antepartum (QS system process) Datetime: 04/16/2016 08:50 Respirations: 17 (Magy Ale, RN) Pain Scale: 0 (Magy Ale, RN) Pain Presence: None/Denies (Magy Ale, RN) Pain Type: N/A (Magy Ale, RN) LaborFlag: Antepartum (QS system process) Datetime: 04/16/2016 08:46 NBP Sys/Selena/Mean (mmHg): 140 (QS system process) : 69 (QS system process) : 95 (QS system process) Pulse: 49 (QS system process) LaborFlag: Antepartum (QS system process) Datetime: 04/16/2016 08:35 Respirations: 16 (Magy Ale, RN) Pain Scale: 0 (Magy Ale, RN) Pain Presence: None/Denies (Magy Ale, RN) Pain Type: N/A (Magy Ale, RN) LaborFlag: Antepartum (QS system process) Datetime: 04/16/2016 08:20 Respirations: 16 (Magy Ale, RN) Pain Scale: 0 (Magy Ale, RN) Pain Presence: None/Denies (Magy Ale, RN) Pain Type: N/A (Magy Ale, RN) LaborFlag: Antepartum (QS system process) Datetime: 04/16/2016 08:16 NBP Sys/Selena/Mean (mmHg): 140 (QS system process) : 68 (QS system process) : 89 (QS system process) Pulse: 51 (QS system process) LaborFlag: Antepartum (QS system process) Datetime: 04/16/2016 08:05 Respirations: 17 (Magy Aguilera RN) Pain Scale: 0 (Magy Aguilera RN) Pain Presence: None/Denies (Magy Aguilera RN) Pain Type: N/A (Magy Aguilera RN) LaborFlag: Antepartum (QS system process)
[2016-04-16] MEDS: IBUPROFEN 800 MG TABLET PO SCH ×2 (10:21→21:17)
[2016-04-16] MEDS ORDERED: IBUPROFEN 800 MG TABLET ONE (10:21)
[2016-04-16] MEDS ORDERED: PRENATAL VITAMIN W-O CA NO5/FE FUMARATE/FA CAPSULE ONE (11:29)
[2016-04-16] MEDS ORDERED: SENNOSIDES/DOCUSATE 8.6-50 MG 1 EACH TABLET ONE (11:30)
[2016-04-16] MEDS ORDERED: DOCUSATE SODIUM 100 MG CAPSULE ONE (11:30)
[2016-04-16] MEDS ORDERED: FERROUS SULFATE 325 MG TABLET PO ONE (11:30)
[2016-04-16] MEDS: PRENATAL VITAMIN W-O CA NO5/FE FUMARATE/FA CAPSULE PO SCH (11:31)
[2016-04-16] MEDS: DOCUSATE SODIUM 100 MG CAPSULE PO SCH ×2 (11:32→17:50)
[2016-04-16] MEDS: SENNOSIDES/DOCUSATE 8.6-50 MG 1 EACH TABLET PO SCH (11:32)
[2016-04-16] MEDS: FERROUS SULFATE 325 MG TABLET PO SCH ×2 (11:32→17:50)
--- NOTE | 2016-04-16 12:00 | L&D Flow Sheet ---
LD Flowsheet Datetime Report Generated by CPN: 04/16/2016 12:00 Datetime: 04/16/2016 10:21 Pain Scale: 2 (Magy Aguilera RN) Pain Presence: Intermittent (Magy Aguilera RN) Pain Type: Cramping (Magy Aguilera RN) Pain Location: Abdomen (Magy Aguilera RN) Pain Relief Measures: Pain Medication Given; Comfort Measures (Magy Aguilera RN) Pain Assessment Comments: pt resting in bed with eyes closed trying to take a nap (Magy Aguilera RN) LaborFlag: Antepartum (QS system process)
--- NOTE | 2016-04-16 13:29 | Admission Physical ---
Datetime Report Generated by CPN: 04/16/2016 13:28 CURRENT ADMISSION Hx Assessment: The History has been Reviewed and is Current Chief Complaint: Scheduled Induction of Labor Indication for Induction: Maternal Cardiac Disease; Other Indication for Induction- Other: ama Admit Plan: Admit to Unit; Initiate Labor Induction Protocol ALLERGIES Medication Allergies: No Medication Allergies: No Known Allergies (03/21/2016) Latex: No Latex Allergies Food Allergies: None Environmental Allergies: None OBSTETRICAL HISTORY EDC: 04/22/2016 00:00 : 3 Para: 2 Term: 2 : 0 SAB: 0 IAB: 0 Ectopic: 0 Livin Cesareans: 0 VBACs: 0 Multiple Births: 0 Gestational Diabetes: No Rh Sensitization: No Incompetent Cervix: No JAQUELINE: No Infertility: No ART Treatment: No Uterine Anomaly: No IUGR: No Hx Previous C/S: No Macrosomia: No Hx Loss/Stillborn: No PIH: No Hx : No Placenta Previa/Abruption: No Depression/PP Depression: No PTL/PROM: No Post Hemorrhage: No Current Procedures: Ultrasound Obstetrical History Comments: G1 - 01/1999 - , full term, 6lbs 12oz G2 - 12/1999 - , full term, 8lbs 1oz G3 - Current SEE RECORDS Alcohol: No Marijuana : No Cocaine: No Other Illicit Drugs: No Cigarettes: Current Everyday Smoker. [id number] Cigarette Frequency: < 5 per day Advised to Stop: Yes Cigarette Comments: 4/cigarettes daily. 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 Heart Disease: Unknown Hosp/Surgery: No Autoimmune Disorder: No Anesthetic Complications: No Kidney Disease: No Abnormal Pap Smear: No Neuro/Epilepsy: No Psychiatric Disorders: No Other Medical Diseases: No Hepatitis/Liver Disease: No Significant Family History: No Varicosities/Phlebitis: No Trauma/Violence : No Thyroid Dysfunction: No Medical History Comments: 2005 - Hx of cardiac cath for possible heart attack, MFM reviewed records from [facility] for cardiac problems in this INFECTIOUS HISTORY Gonorrhea: No Genital Herpes: No Chlamydia: Yes Tuberculosis: No Syphilis: No Hepatitis: No HIV/AIDS Exposure: No Rash or Viral Illness: No HPV: No Infectious History Comments: 1998 - Hx Chlam, treated PHYSICAL EXAM General: Normal HEENT: Normal Neurologic: Normal Thyroid: Deferred Heart: Normal Lungs: Normal Breast: Normal Back: Deferred Abdomen: Normal Genitourinary Exam: Normal Extremities: Normal DTRs: Normal Pelvic Type: Adequate Vital Signs: Reviewed VAGINAL EXAM Dilatation: 1 Effacement: 50 Station: -4 Contraction Comments: rare FETUS A EGA: 39.1 Monitoring: External US FHR- Baseline: 130 Variability: Moderate 6-25bpm Accelerations: 15X15 Decelerations: None FHR Category: Category I Estimated Weight (gm): 3200 Presentation: Vertex Admit Comment: see hx Scheduled IOL for maternal cardiac disease and AMA Cervidil overnight Plan for pitocin in AM PLANS FOR LABOR AND DELIVERY Labor and Delivery: None Pain Management: Epidural Feeding Preference: Formula Benefit of Breast Feed Discussed: Yes Circumcision: N/A INFORMED CONSENT Assignment: DO Peyton Beltran: with User ID: Kesha : with User ID: Kesha
--- NOTE | 2016-04-16 14:00 | L&D Flow Sheet ---
LD Flowsheet Datetime Report Generated by CPN: 04/16/2016 14:00 Datetime: 04/16/2016 12:05 NBP Sys/Selena/Mean (mmHg): 120 (QS system process) : 58 (QS system process) : 81 (QS system process) Pulse: 59 (QS system process) LaborFlag: Antepartum (QS system process)
[2016-04-16] MEDS: ACETAMINOPHEN WITH CODEINE #3 TABLET PO PRN ×2 (14:17→19:34)
--- NOTE | 2016-04-16 19:00 | L&D Flow Sheet ---
LD Flowsheet Datetime Report Generated by CPN: 04/16/2016 19:00 Datetime: 04/16/2016 12:05 NBP Sys/Selena/Mean (mmHg): 120 (QS system process) : 58 (QS system process) : 81 (QS system process) Pulse: 59 (QS system process) LaborFlag: Antepartum (QS system process) Datetime: 04/16/2016 10:21 Pain Scale: 2 (Magy Aguilera, RN) Pain Presence: Intermittent (Magy Ale, RN) Pain Type: Cramping (Magy Aguilera, RN) Pain Location: Abdomen (Magy Ale, RN) Pain Relief Measures: Pain Medication Given; Comfort Measures (Magy Aguilera, RN) Pain Assessment Comments: pt resting in bed with eyes closed trying to take a nap (Magy Aguilera RN) LaborFlag: Antepartum (QS system process) Datetime: 04/16/2016 09:30 Respirations: 16 (Magy Aguilera, RN) Temperature (F): 98.3 (Magy Aguilera, RN) Temperature (C): 36.8 (QS system process) Pain Scale: 0 (Magy Aguilera, RN) Pain Presence: None/Denies (Magy Aguilera, RN) Pain Type: N/A (Magy Ale, RN) LaborFlag: Antepartum (QS system process) Datetime: 04/16/2016 09:16 NBP Sys/Selena/Mean (mmHg): 111 (QS system process) : 67 (QS system process) : 75 (QS system process) Pulse: 63 (QS system process) LaborFlag: Antepartum (QS system process) Datetime: 04/16/2016 08:50 Respirations: 17 (Magy Ale, RN) Pain Scale: 0 (Magy Ale, RN) Pain Presence: None/Denies (Magy Ale, RN) Pain Type: N/A (Magy Ale, RN) LaborFlag: Antepartum (QS system process) Datetime: 04/16/2016 08:46 NBP Sys/Selena/Mean (mmHg): 140 (QS system process) : 69 (QS system process) : 95 (QS system process) Pulse: 49 (QS system process) LaborFlag: Antepartum (QS system process) Datetime: 04/16/2016 08:35 Respirations: 16 (Magy Ale, RN) Pain Scale: 0 (Magy Ale, RN) Pain Presence: None/Denies (Magy Ale, RN) Pain Type: N/A (Magy Ale, RN) LaborFlag: Antepartum (QS system process) Datetime: 04/16/2016 08:20 Respirations: 16 (Magy Ale, RN) Pain Scale: 0 (Magy Ale, RN) Pain Presence: None/Denies (Magy Ale, RN) Pain Type: N/A (Magy Ale, RN) LaborFlag: Antepartum (QS system process) Datetime: 04/16/2016 08:16 NBP Sys/Selena/Mean (mmHg): 140 (QS system process) : 68 (QS system process) : 89 (QS system process) Pulse: 51 (QS system process) LaborFlag: Antepartum (QS system process) Datetime: 04/16/2016 08:05 Respirations: 17 (Magy Ale, RN) Pain Scale: 0 (Magy Ale, RN) Pain Presence: None/Denies (Magy Ale, RN) Pain Type: N/A (Magy Ale, RN) LaborFlag: Antepartum (QS system process) Datetime: 04/16/2016 07:50 Respirations: 17 (Magy Ale, RN) Temperature (F): 98.0 (Magy Ale, RN) Temperature (C): 36.7 (QS system process) Pain Scale: 0 (Magy Ale, RN) Pain Presence: None/Denies (Magy Ale, RN) Pain Type: N/A (Magy Ale, RN) Level of Consciousness: Fully Conscious (Magy Ale, RN) Headache: Denies (Magy Ale, RN) Breath Sounds, Left: Clear and Equal (Magy Ale, RN) Breath Sounds, Right: Clear and Equal (Magy Ale, RN) Nausea/Vomiting: Denies (Magy Ale, RN) RUQ Epigastric Pain: Denies (Magy Ale, RN) LaborFlag: Antepartum (QS system process) Datetime: 04/16/2016 07:35 Respirations: 17 (Magy Ale, RN) Pain Scale: 0 (Magy Ale, RN) Pain Presence: None/Denies (Magy Ale, RN) Pain Type: N/A (Magy Ale, RN) LaborFlag: Antepartum (QS system process) Datetime: 04/16/2016 07:30 Stage 2 Comments: Delivery liveborn female over intact perineum. Placed on maternal abdomen, dried and stimulated with spontaneous lusty cry noted. Cord clamped and cut by fob, placed skin to skin on maternal chest (Lyn Guzman, [facility]) Datetime: 04/16/2016 07:28 Dilatation (cm): 10.0 (Lyn Camp, RNC) Effacement (%): 100 (Lyn Camp, RNC) Station: 3 (Lyn Camp, RNC) Exam by: Wyatt Haley (Lyn Camp, RNC) Pushing: Involuntary Pushing (Lyn Camp, RNC) Pushing Position: Pushing with Contractions (Lyn Camp, RNC) Pushing Progress: with Pushing (Lyn Camp, RNC) Datetime: 04/16/2016 07:25 Patient Care Comments: in bathroom, called out stating pt urge to push. Assisted to bed with moderate bloody show and perineal bulging noted. Provider Wyatt Haley CNM at bedside sve completed C/C/ +3 with presenitng part noted. RN at bedside attempting to locate fhr. (Lyn [place], RNC) Datetime: 04/16/2016 07:19 I/O Interventions: Up to BR (Magy Ale, RN) Datetime: 04/16/2016 07:17 Communication: Report Given to @ A Ale RN (Rachel Ledgerwood, RN) Datetime: 04/16/2016 07:16 NBP Sys/Selena/Mean (mmHg): 159 (QS system process) : 79 (QS system process) : 109 (QS system process) Pulse: 55 (QS system process) LaborFlag: Antepartum (QS system process) Datetime: 04/16/2016 07:15 Monitor Mode: External; Palpation (Magy Ale, RN) Frequency (min): 2-3 (Magy Ale, RN) Quality: Moderate (Magy Ale, RN) Duration (sec): 60-90 (Magy Ale, RN) Resting Tone (Palpate): Relaxed (Magy Ale, RN) Monitor Mode: External US (Magy Ale, RN) FHR Baseline Rate : 125 (Magy Ale, RN) Variability: Moderate 6-25 bpm (Magy Ale, RN) Accelerations: None (Magy Ale, RN) Decelerations: None (Magy Ale, RN) Datetime: 04/16/2016 07:14 Comments: pt laying on her side, FHR monitor tracing maternal HR (Magy Ale, RN) Communication: RN at Bedside (Magy Ale, RN) Datetime: 04/16/2016 07:00 Monitor Mode: External (Patti Minh, RN) Frequency (min): 2-4 (Patti Wilkinson RN) Quality: Moderate (Patti Wilkinson RN) Duration (sec): 50-80 (Patti Wilkinson RN) Pattern: Normal: <= 5 Contractions in 10 Minutes (Patti Wilkinson RN) Resting Tone (Palpate): Relaxed (Patti Wilkinson RN) Monitor Mode: External US (Patti Wilkinson RN) FHR Baseline Rate : 130 (Patti Wilkinson RN) FHR Baseline Changes: No Baseline Change (Patti Wilkinson RN) Variability: Moderate 6-25 bpm (Patti Wilkinson RN) Accelerations: None (Patti Wilkinson RN) Decelerations: Early (Patti Wilkinson RN)
[2016-04-17] MEDS: ACETAMINOPHEN WITH CODEINE #3 TABLET PO PRN ×3 (00:11→22:23)
[2016-04-17] MEDS: IBUPROFEN 800 MG TABLET PO SCH ×3 (05:03→22:22)
--- NOTE | 2016-04-17 06:00 | L&D General Admission ---
General Admit Datetime Report Generated by CPN: 04/17/2016 06:00 INFORMATION Patient Age: 35 (03/01/2016 14:04:QS system process) EDC: 04/22/2016 00:00 (03/01/2016 14:06:Mercy Dale RN) : 3 (03/01/2016 14:06:Mercy Dale RN) Para: 2 (03/01/2016 15:32:Mercy Dale RN) Term: 2 (03/01/2016 14:06:Mercy Dale RN) : 0 (03/01/2016 14:06:Mercy Dale RN) Spontaneous Abortions: 0 (03/01/2016 14:06:Mercy Dale RN) Induced Abortions: 0 (03/01/2016 14:06:Mercy Dale RN) Livin (03/01/2016 14:06:Mercy Dale RN) Cesareans: 0 (03/01/2016 14:06:Mercy Dale RN) VBACs: 0 (03/01/2016 14:06:Mercy Dale RN) Ectopic: 0 (03/01/2016 14:06:Mercy Dale RN) Multiple Births: 0 (03/01/2016 14:06:Mercy Dale RN) Baby, Number in Womb: 1 (03/01/2016 15:32:Mercy Dale RN) CARE Primary Impression Printer: [facility] (03/01/2016 14:06:Mercy Dale RN) Month of 1st Visit: 09/2015 (03/01/2016 14:06:Mercy Dale RN) Adequate Care: Yes (03/01/2016 14:06:Mercy Dale RN) Prepregnancy Weight (lb): 130 (03/01/2016 14:06:Mercy Dale RN) Prepregnancy Weight (kg): 59.1 (03/01/2016 14:06:QS system process) Height (in): 66 (04/16/2016 13:27:QS system process) ALLERGIES Medication Allergy: No (03/01/2016 14:06:Mercy Dale RN) Medication Allergies: No Known Allergies (03/21/2016) (03/21/2016 00:49:QS system process) Latex Allergy: No Latex Allergies (03/01/2016 14:06:Mercy Dale RN) Food Allergies: None (03/01/2016 14:06:Mercy Dale RN) Environmental Allergies: None (03/01/2016 14:06:Mercy Dale RN) COMMUNICATION Primary Language: Nicaraguan (03/01/2016 14:06:Mercy Dale RN) Medical Tx Preferred Language: Nicaraguan (03/01/2016 14:06:Mercy Dale RN) Nicaraguan Communication Ability: Speaks Nicaraguan; Reads Nicaraguan (03/01/2016 14:06:Ramila Green RN) Communication Barrier(s): None (03/01/2016 14:06:Ramila Green RN) DEMOGRAPHICS Address: [address] [place] [address] (03/01/2016 14:04:QS system process) Zipcode: [address] (03/01/2016 14:04:QS system process) Home (03/01/2016 14:04:QS system process) SSN: [id number] (03/01/2016 14:04:QS system process) Next of Kin Name: SHERON YO (03/01/2016 14:04:QS system process) Next of Kin (03/01/2016 14:04:QS system process) Next of Kin Relationship: MO (03/01/2016 14:04:QS system process) Date of : 1980 (03/01/2016 14:04:QS system process) Marital Status: Legally (03/01/2016 14:04:QS system process) Sex: Female (03/01/2016 14:04:QS system process) Race: (03/01/2016 14:04:QS system process) Ethnicity: Non- or (03/01/2016 14:04:QS system process) Taoist: None (03/01/2016 14:04:QS system process) Education: 9 (03/01/2016 14:06:Mercy Dale RN) FOB Involved: Yes (03/01/2016 14:06:Mercy Dale RN) Father of Baby Name: Brian Jacobson (03/01/2016 14:06:Mercy Dale RN) DRUG AND ALCOHOL USE Alcohol: No (03/01/2016 14:06:Mercy Dale RN) Cigarettes: Current Everyday Smoker. [id number] (03/01/2016 14:06:Mercy Dale RN) Average Cigarettes Smoked: < 5 per day (03/01/2016 14:06:Mercy Dale RN) Advised to Stop Smoking: Yes (03/01/2016 14:06:Mercy Dale RN) Cigarette Comments: 4/cigarettes daily. This RN provided education to pt, advised to quit (03/01/2016 14:06:Ramila Green RN) Marijuana: No (03/01/2016 14:06:Mercy Dale RN) Cocaine: No (03/01/2016 14:06:Mercy Dale RN) Other Illicit Drugs: No (03/01/2016 14:06:Mercy Dale RN) VACCINE HISTORY Influenza Vaccine: No (03/01/2016 14:06:Mercy Dale RN) Pneumococcal Vaccine: No (03/01/2016 14:06:Mercy Dale RN) Tetanus Vaccine: No (03/01/2016 14:06:Mercy Dale RN) Tdap Vaccine: No (03/01/2016 14:06:Mercy Dale RN) Hepatitis B Vaccine: No (03/01/2016 14:06:Mercy Dale RN) Barrel Inspector: [facility] (03/01/2016 14:06:Rachel Kingsley RN) Feeding Preference: Formula (03/01/2016 14:06:CHELO Santos) Benefit of Breast Feed Discussed: Yes (03/01/2016 14:06:Mercy Dale RN) Circumcision: N/A (03/01/2016 14:06:Mercy Dale RN) Classes Attended: No (03/01/2016 14:06:Mercy Dale RN) Tubal Ligation: No (03/01/2016 14:06:Mercy Dale RN) Tubal Authorization Signed: N/A (03/01/2016 14:06:Mercy Dale RN) Consent: N/A (03/01/2016 14:06:Mercy Dale RN) Consent Signed: N/A (03/01/2016 14:06:Mercy Dale RN) Pain Management Plans: Epidural (03/01/2016 14:06:Mercy Dale RN) Plans for Labor and Delivery: None (03/01/2016 14:06:Mercy Dale RN) Support Person: Brian Jacobson (03/01/2016 14:06:Mercy Dale RN) Support Person Relationship: Significant Other (03/01/2016 14:06:Mercy Dale RN) Cultural/Spritual Practice: No (03/01/2016 14:06:Mercy Dale RN) Spir/Cult Dietary Needs: No (03/01/2016 14:06:Mercy Dale RN) LIVING SITUATION/DISCHARGE PLAN Living Arrangements: House (03/01/2016 14:06:Mercy Dale RN) Adequate Access to:: Electric; Heat; Refrigeration; Plumbing/Running water; Phone; Transportation (03/01/2016 14:06:Mercy Dale RN) WIC Program: Yes (03/01/2016 14:06:Mercy Dale RN) Discharge Hooker Operator Person: Brian Franco (03/01/2016 14:06:Mercy Dale RN) Person to Help after Discharge: Brian Franco (03/01/2016 14:06:Mercy Dale RN) Currently Using Commun Resources: Yes (03/01/2016 14:06:Mercy Dale RN) Specify Current Resource Used: WIC, [facility] (03/01/2016 14:06:Mercy Dale RN) Outside Agency/Housekeeping Lead: No (03/01/2016 14:06:Mercy Dale RN) Car Seat for Discharge: Yes (03/01/2016 14:06:Mercy Dale RN) Adoption Requested: No (03/01/2016 14:06:Mercy Dale RN) Pt Contact w/infant Post : N/A (03/01/2016 14:06:Mercy Dale RN) LABS Blood Type: O Positive (03/01/2016 14:06:Mercy Dale RN) Antibody Screen: Negative (03/01/2016 14:06:Mercy Dale RN) Rho(G) this : Not Applicable (03/01/2016 14:06:Mercy Dale RN) Hemoglobin: 12.4 (04/15/2016 20:10:QS system process) Hematocrit: 36.0 (04/15/2016 20:10:QS system process) MCV: 86 (04/15/2016 20:10:QS system process) Group Beta Strep: negative (Annotations: Data stored by CPN on behalf of user) (03/01/2016 14:06:Patti Wilkinson RN) Gonorrhea: Negative (03/01/2016 14:06:Mercy Dale RN) Chlamydia: Negative (03/01/2016 14:06:Mercy Dale RN) RPR/VDRL: Nonreactive (03/01/2016 14:06:Mercy Dale RN) HIV Exposure Test: Negative (03/01/2016 14:06:Mercy Dale RN) HIV Results: non-reactive (03/01/2016 14:06:Patti Wilkinson RN) Hepatitis B: Negative (03/01/2016 14:06:Mercy Dale RN) Urine Culture: Positive (03/01/2016 14:06:Mercy Dale RN) Rubella: Immune (03/01/2016 14:06:Mercy Dale RN) Varicella: Non Susceptible (03/01/2016 14:06:Mercy Dale RN) OB/PREVIOUS HISTORY Previous Procedures: Ultrasound (03/01/2016 14:06:Mercy Dale RN) Current Procedures: Ultrasound (03/01/2016 14:06:Mercy Dale RN) History of Previous : No (03/01/2016 14:06:Mercy Dale RN) History of Gestational Diabetes: No (03/01/2016 14:06:Mercy Dale RN) History of PIH: No (03/01/2016 14:06:Mercy Dale RN) History of Incompetent Cervix: No (03/01/2016 14:06:Mercy Dale RN) History of Placenta Previa/Abrup: No (03/01/2016 14:06:Mercy Dale RN) History of Macrosomia: No (03/01/2016 14:06:Mercy Dale RN) History of IUGR: No (03/01/2016 14:06:Mercy Dale RN) History of Hemorrhage: No (03/01/2016 14:06:Mercy Dale RN) History of Loss/Stillborn: No (03/01/2016 14:06:Mercy Dale RN) History of : No (03/01/2016 14:06:Mercy Dale RN) History of D (Rh) Sensitization: No (03/01/2016 14:06:Mercy Dale RN) History Recurrent Loss/Stillborn: No (03/01/2016 14:06:Mercy Dale RN) History Depression/PP Depression: No (03/01/2016 14:06:Mercy Dale RN) History of Uterine Anomaly/JAQUELINE: No (03/01/2016 14:06:Mercy Dale RN) History of Infertility: No (03/01/2016 14:06:Mercy Dale RN) History of ART Treatment: No (03/01/2016 14:06:Mercy Dale RN) History of JAQUELINE: No (03/01/2016 14:06:Mercy Dale RN) Comments Obstetrical History: G1 - 01/1999 - , full term, 6lbs 12oz G2 - 12/1999 - , full term, 8lbs 1oz G3 - Current (03/01/2016 14:06:Mercy Dale RN) MEDICAL HISTORY Med Hx Diabetes: No (03/01/2016 14:06:Mercy Dale RN) Med Hx Hypertension: No (03/01/2016 14:06:Mercy Dale RN) Med Hx Heart Disease: Unknown (03/01/2016 14:06:Mercy Dale RN) Med Hx Autoimmune Disorder: No (03/01/2016 14:06:Mercy Dale RN) Med Hx Kidney Disease/UTI: No (03/01/2016 14:06:Mercy Dale RN) Med Hx Neurologic/Epilepsy: No (03/01/2016 14:06:Mercy Dale RN) Med Hx Psychiatric Disorders: No (03/01/2016 14:06:Mercy Dale RN) Med Hx Hepatitis/Liver Disease: No (03/01/2016 14:06:Mercy Dale RN) Med Hx Varicosities/Phlebitis: No (03/01/2016 14:06:Mercy Dale RN) Med Hx Thyroid Dysfunction: No (03/01/2016 14:06:Mercy Dale RN) Med Hx Trauma/Violence: No (03/01/2016 14:06:Mercy Dale RN) Med Hx Blood Transfusion: No (03/01/2016 14:06:Mercy Dale RN) Med Hx Pulmonary (Asthma,TB): No (03/01/2016 14:06:Mercy Dale RN) Med Hx Breast: No (03/01/2016 14:06:Mercy Dale RN) Med Hx WILTON WEAVER Surgery: No (03/01/2016 14:06:Mercy Dale RN) Med Hx Hospitalization/Surgery: No (03/01/2016 14:06:Mercy Dale RN) Med Hx Anesthetic Complications: No (03/01/2016 14:06:Mercy Dale RN) Med Hx Abnormal Pap Smear: No (03/01/2016 14:06:Mercy Dale RN) Other Medical Diseases: No (03/01/2016 14:06:Mercy Dale RN) Med Hx Significant Family Hx: No (03/01/2016 14:06:Mercy Dale RN) Details of Med/Surg Hx: 2006 - Hx of cardiac cath for possible heart attack, MFM reviewed records from [place], cleared for cardiac problems in this (03/01/2016 14:06:Mercy Dale RN) INFECTIOUS HISTORY Inf Hx Gonorrhea: No (03/01/2016 14:06:Mercy Dale RN) Inf Hx Chlamydia: Yes (03/01/2016 14:06:Mercy Dale RN) Inf Hx Syphilis: No (03/01/2016 14:06:Mercy Dale RN) Inf Hx HIV/AIDS: No (03/01/2016 14:06:Mercy Dale RN) Inf Hx Human Papilloma Virus: No (03/01/2016 14:06:Mercy Dale RN) Inf Hx Pt/Partner Genital Herpes: No (03/01/2016 14:06:Mercy Dale RN) Inf Hx Tuberculosis/Exposure: No (03/01/2016 14:06:Mercy Dale RN) Inf Hx Hepatitis B,C: No (03/01/2016 14:06:Mercy Dale RN) Inf Hx Rash or Viral Illness: No (03/01/2016 14:06:Mercy Dale RN) Details of Infectious Hx: 1999 - Hx Chlam, treated (03/01/2016 14:06:Mercy Dale RN) GENETIC HISTORY Gen Hx Age >=35 at ZACHARY: No (03/01/2016 14:06:Mercy Dale RN) Gen Hx Thalassemia: No (03/01/2016 14:06:Mercy Dale RN) Gen Hx Congenital Heart Defect: No (03/01/2016 14:06:Mercy Dale RN) Gen Hx Neural Tube Defect: No (03/01/2016 14:06:Mercy Dale RN) Gen Hx Down's Syndrome: No (03/01/2016 14:06:Mercy Dale RN) Gen Hx Brayan-Sachs: No (03/01/2016 14:06:Mercy Dale RN) Gen Hx Elaine: No (03/01/2016 14:06:Mercy Dale RN) Gen Hx Familial Dysautonomia: No (03/01/2016 14:06:Mercy Dale RN) Gen Hx Sickle Cell Disease/Trait: No (03/01/2016 14:06:Mercy Dale RN) Gen Hx Hemophilia/Blood Disorder: No (03/01/2016 14:06:Mercy Dale RN) Gen Hx Muscular Dystrophy: No (03/01/2016 14:06:Mercy Dale RN) Gen Hx Cystic Fibrosis: No (03/01/2016 14:06:Mercy Dale RN) Gen Hx Huntingtons Chorea: No (03/01/2016 14:06:Mercy Dale RN) Gen Hx Mental Retardation/Autism: No (03/01/2016 14:06:Mercy Dale RN) Gen Hx Tested for Fragile X: No (03/01/2016 14:06:Mercy Dale RN) Gen Hx Other Inher/Chromosomal: No (03/01/2016 14:06:Mercy Dale RN) Gen Hx Maternal Metabolic DO: No (03/01/2016 14:06:Mercy Dale RN) Gen Hx Pt Father or FOB Defect: No (03/01/2016 14:06:Mercy Dale RN) Gen Hx Other Genetic History: No (03/01/2016 14:06:Mercy Dale RN) Gen Hx Drugs/Meds since LMP: Yes (03/01/2016 14:06:Mercy Dale RN) Gen Hx Medications: PNV (03/01/2016 14:06:Mercy Dale RN)
--- NOTE | 2016-04-17 06:00 | L&D Current Admission ---
Current Admit Datetime Report Generated by CPN: 04/17/2016 06:00 ADMISSION INFORMATION Current Admit Date/Time: 04/15/2016 20:35 (04/15/2016 20:35:Rachel Kingsley RN) Reason for Admission: Induction of Labor (04/15/2016 20:35:Rachel Kingsley RN) Chief Complaint: Scheduled Induction of Labor (04/15/2016 20:20:Rachel Kingsley RN) EGA per Dates: 39.0 (04/15/2016 20:35:QS system process) Method of Arrival: Wheelchair (04/15/2016 20:35:Rachel Kingsley RN) Admitted From: Home (04/15/2016 20:35:Rachel Kingsley RN) Records Available: Yes (04/15/2016 20:35:Rachel Kingsley RN) General Admission Information: Reviewed (04/15/2016 20:35:Rachel Kingsley RN) BELONGINGS/ADVANCED DIRECTIVES Other Belongings: see belongings consent (04/15/2016 20:35:Rachel Kingsley RN) Disposition of Belongings: Kept with Patient (04/15/2016 20:35:Rachel Kingsley RN) Advance Direct for Healthcare: No, and Wants No Information (04/15/2016 20:35:Rachel Kingsley RN) Durable Power of Hole Digger Operator: No (04/15/2016 20:35:Rachel Kingsley RN) Living Will: No (04/15/2016 20:35:Rachel Kingsley RN) Organ Donor: No (04/15/2016 20:35:Rachel Kingsley RN) Pt Rights Information Given: Yes (04/15/2016 20:35:Rachel Kingsley RN) Pt Understands Pt Rights: Yes (04/15/2016 20:35:Rachel Kingsley RN) LEARNING ASSESSMENT Knowledge Level: Understands L_D Process; Understands Care Activities; Understands Diagnosis (04/15/2016 20:35:Rachel Kingsley RN) Barriers to Learning: None (04/15/2016 20:35:Rachel Kingsley RN) Learning Readiness: Motivated (04/15/2016 20:35:Rachel Kingsley RN) Learns Best By: 1 to 1 Instruction (04/15/2016 20:35:Rachel Kingsley RN) Learning Needs: Labor and Delivery Process; Pain Management; Symptoms to Report; Treatment Plan; Medication; Diagnosis; Nutrition; Equipment; Care; Community Resources (04/15/2016 20:35:Rachel Kingsley RN) DOMESTIC VIOLANCE SCREENING Dom Viol Threatened/Hurt: No (04/15/2016 20:35:Rachel Kingsley RN) Hx of Abuse/Neglect past 2yrs: No (04/15/2016 20:35:Rachel Kingsley RN) Feel Unsafe Going Home: No (04/15/2016 20:35:Rachel Kingsley RN) Addt'l Observ Indicating Abuse: No (04/15/2016 20:35:Rachel Kingsley RN) Reason Unable to Complete Screen: N/A, Screen Completed (04/15/2016 20:35:Rachel Kingsley RN) Considered Personal Harm/Suicide: No (04/15/2016 20:35:Rachel Kingsley RN) NUTRITIONAL/FUNCTIONAL SCREENING Problem with Appetite >5 Days: No (04/15/2016 20:35:Rachel Kingsley RN) Chew/Swallow Difficulties: No (04/15/2016 20:35:Rachel Kingsley RN) Inappropriate Wt Gain/Loss: No (04/15/2016 20:35:Rachel Kingsley RN) Presence Skin Breakdown/Ulcer: No (04/15/2016 20:35:Rachel Kingsley RN) Special Diet: No (04/15/2016 20:35:Rachel Kingsley RN) Pt Requests Film Recordist Visit: No (04/15/2016 20:35:Rachel Kingsley RN) Hx of Any of the Following?: N/A (04/15/2016 20:35:Rachel Kingsley RN) New Diagnosis of: N/A (04/15/2016 20:35:Rachel Kingsley RN) Requires Assist w/Ambulation: No (04/15/2016 20:35:Rachel Kingsley RN) Uses Assist Device to Ambulate: No (04/15/2016 20:35:Rachel Kingsley RN) Pt Requires Help w/ADL's: No (04/15/2016 20:35:Rachel Kingsley RN)
--- NOTE | 2016-04-17 06:15 | L&D Care Plan ---
LD CARE PLANS Datetime Report Generated by CPN: 04/17/2016 06:15 Datetime: 04/15/2016 22:22 Pain State: Risk For (Rachel Kingsley RN) Related To: Labor and Delivery Process (Rachel Kingsley RN) Goal(s): Patients Pain will be Assessed and Managed; Patient will Verbalize Adequate Relief of Pain or the Ability to [place] with Current Pain (Rachel Kingsley RN) Interventions: Assess Pain Severity on Scale of 0 (None) to 5 (Severe); Assess Type, Location and Intensity of Pain Each Time Client Reports Discomfort and Notify Provider if Unusal Pain Develops; Encourage Proper Breathing and Relaxation Techniques; Offer Alternatives Such as Repositioning, Calm Environment, Massages, Diversional Activities, Ice Pack, Splinting, and Ambulation; Administer Analgesics as Ordered; Assist with Epidural Placement as Appropriate; Evaluate Therapeutic Effectiveness of Medication and Treatments (Rachel Kingsley RN) Outcome: Patient will Report Absence or Relief of Pain Consistent with Established Pain Goal (Rachel Kingsley RN) Status: Ongoing (Rachel Kingsley RN) Outcome: Patient will have a Decrease in Signs and Symptoms of Discomfort (Rachel Kingsley RN) Status: Ongoing (Rachel Kingsley RN) Outcome: Pain will be Controlled During Procedures (Rachel Kingsley RN) Status: Ongoing (Rachel Kingsley RN) Anxiety State: Risk For (Rachel Kingsley RN) Related To: Labor and Delivery Process (Rachel Kingsley RN) Goal(s): Patient will have Decreased Anxiety and be able to Function at Acceptable Levels (Rachel Kingsley RN) Interventions: Assess Verbal and Nonverbal Behavioral Indicators of Anxiety; Assist Patient to Identify and Verbalize Symptoms of Anxiety; Identify and Demonstrate Techniques to Control Anxiety; Assist Patient with Coping Mechanisms to Manage Anxiety; Provide Theraputic Touch for the Patient; Explain to Patient, Using a Calm Reassuring Approach and Nonmedical Terms, All Activities, Procedures, and Concerns; Instruct Patient and Family about Post Discharge Care, Limitations, Symptoms to Report and Resources Available (Rachel Kingsley RN) Outcome: Patient will Identify, Verbalize and Demonstrate Techniques to Control Anxiety (Rachel Kingsley RN) Status: Ongoing (Rachel Kingsley RN) Outcome: Patient's Posture, Facial Expressions, Gestures and Activity Level will Reflect Decreased Anxiety (Rachel Kingsley RN) Status: Ongoing (Rachel Kingsley RN) Outcome: Patient will Verbalize a Sense of Control and/or Acceptance of the Situation (Rachel Kingsley RN) Status: Ongoing (Rachel Kingsley RN) Outcome: Patient will Identify and Utilize Support Person (Rachel Kingsley RN) Status: Ongoing (Rachel Kingsley RN) Knowledge Deficit State: Actual (Rachel Kingsley RN) Related To: Labor and Delivery Process; Treatment and Procedures (Rachel Kingsley RN) Goal(s): Patient will Accurately Verbalize Understanding of Plan of Care and Treatment; Patient and Family will Accurately Verbalize Understanding of the Disease Process (Rachel Kingsley RN) Interventions: Assess Motivation and Willingness of Patient/Family to Learn; Assess Preferred Learning Mode: One to One Instruction, Reading, Videos, Group Discussion or Demonstration; Assess Barriers to Learning: Pain, Emotional State, Language Barrier, Cognitive Impairment, Visual or Hearing Deficits; Assess Patient and Family Knowledge of Disease Process, Medications and Treatment; Discuss Therapy and/or Treatment Options, Describe Rationale Behind Management, Therapy and Treatment Recommendations; Instruct Patient and Family on Signs and Symptoms to Report; Instruct Patient and Family on Medication Effects and Side Effects; Provide Appropriate and Timely Education Using Multiple Techniques; Provide Patient and Family with Support Group Information and Resources; Give Clear and Thorough Explanations and Demonstrations (Rachel Kingsley RN) Outcome: Patient and Family will Verbalize Understanding of Condition, Treatment and Signs and Symptoms to Report (Rachel Kingsley RN) Status: Ongoing (Rachel Kingsley RN) Outcome: Patient will Identify Perceived Learning Needs and Express Motivation to Learn (Rachel Kingsley RN) Status: Ongoing (Rachel Kingsely RN) Outcome: Patient will Verbalize Understanding of Desired Content, and/or Performs Desired Skill Prior to Discharge (Rachel Kingsley RN) Status: Ongoing (Rachel Kingsley RN) Infection State: Risk For (Rachel Kingsley RN) Related To: Prolonged Labor or Induction; Invasive Procedures (Rachel Kingsley RN) Goal(s): The Patient will be Free of Infection, Vital Signs Stable and Lab Work within Normal Parameters (Rachel Kingsley RN) Interventions: Instruct and Reinforce Proper Handwashing, Hygiene, and Care Techniques to Patient and Family; Monitor Vital Signs; Monitor Patient for the Following Signs of Infection: Fever, Abdominal Tenderness, Unusual Discharge; Monitor Aminiotic Fluid, Urine and Lochia for Color and Odor; Observe Wounds, Incisions and Invasive Line Sites for Redness, Drainage and Edema; Assess IV Sites per Hospital Policy; Monitor Lab and Test Results and Notify Provider of Abnormal Findings; Assess Nutritional Status and Promote Good Nutrition (Rachel Kingsley RN) Outcome: Patient will Remain Free of Infection (Rachel Kingsley RN) Status: Ongoing (Rachel Kingsley RN) Outcome: Infection will be Recognized Early to Allow for Prompt Treatment (Rachel Kingsley RN) Status: Ongoing (Rachel Kingsley RN) Outcome: Patient will have Vital Signs Within Expected Range (Rachel Kingsley RN) Status: Ongoing (Rachel Kingsley, JOE) Fluid Volume State: Risk For (Rachel Kingsley RN) Related To: Prolonged Labor or Induction; Anesthesia (Rachel Kingsley RN) Goal(s): Patient will Achieve and Maintain a Balanced Fluid Volume Status; Hemodynamically Stable (Rachel Kingsley RN) Interventions: Monitor Vital Signs; Auscultate Breath Sounds; Monitor Patient for Skin Turgor, Mucous Membranes, Dry Skin, Weakness, Headaches and Confusion; Provide Oral Fluids as Ordered; Initiate and Maintain Intravenous Fluids as Ordered; Monitor Intake and Output as Indicated Per Patient Status; Accurately Measure Blood Loss; Monitor Lab and Test Results as Obtained and Notify Provider of Abnormal Findings; Monitor Patient's Weight (Rachel Kingsley RN) Outcome: Patient will have Clear Lung Sounds (Rachel Kingsley RN) Status: Ongoing (Rachel Kingsley RN) Outcome: Patient will have Vital Signs within Expected Range (Rachel Kingsley RN) Status: Ongoing (Rachel Kingsley RN) Outcome: Urine Output will be within Expected Range (Rachel Kingsley RN) Status: Ongoing (Rachel Kingsley RN) Outcome: Patient will have Minimal Generalized or Upper Extremity Edema (Rachel Kingsley RN) Status: Ongoing (Rachel Kingsley RN) Injury State: Risk For (Rachel Kingsley RN) Related To: Labor and Delivery Process; Anesthesia (Rachel Kingsley RN) Goal(s): Patient will Remain Free from Injury (Rachel Kingsley RN) Interventions: Monitoring as per Hospital Protocol; Assess Neurological Status; Perform Risk Assessment of Patients with Induction and ; Perform Fall Risk Assessment and Prevention per Hospital Protocol; Perform DVT Risk Assessment and Prophylaxis per Hospital Protocol; Ensure that Oxygen, Suction, and Resuscitation Medications and Equipment are Readily Available; Confirm Patient ID Prior to Procedure(s) and Medication Administration per Hospital Policy (Rachel Kingsley RN) Outcome: Successful Fall Risk Prevention (Rachel Kingsley RN) Outcome: Patient will Deliver Infant without Adverse [place] (Rachel Kingsley RN) Outcome: Patient's Neurological Status will Remain Stable (Rachel Kingsley RN) Impaired Skin Integrity State: Risk For (Rachel Kingsley RN) Related To: Vaginal Delivery (Rachel Kingsley RN) Goal(s): Patient will Maintain Optimal Skin Integrity, Free of Breakdown, Injury or Infection (Rachel Kingsley RN) Interventions: Complete Screening for Pressure Ulcer Risk and Initiate Protocol per Hospital Policy; Monitor Site of Skin Impairment for Color Changes, Redness, Swelling, Warmth, Pain or Other Signs of Infection; Encourage and Assist with Position Changes; Monitor Patient's Mobility Status; Provide Adequate Nutrition and Fluids; Teach Patient Appropriate Hygienic Care; Teach Patient/Family Skin Care Management (Rachel Kingsley RN) Outcome: Patient will not have Evidence of Injury Such as Skin Breakdown, Scrapes, Cuts, or Bruising (Rachel Kingsley RN) Status: Ongoing (Rachel Kingsley RN) Outcome: Patient will Report Any Altered Sensation or Pain at Site of Skin Impairment (Rachel Kingsley RN) Status: Ongoing (Rachel Kingsley RN) Outcome: Patients Incisions and Wounds will be without Signs or Symptoms of Infection (Rachel Kingsley RN) Status: Ongoing (Rachel Kingsley RN) Outcome: Patient will Demonstrate Understanding of Plan to Heal Skin and Prevent Reinjury and Verbalize Risk Factors (Rachel Kingsley RN) Status: Ongoing (Rachel Kingsley RN)
[2016-04-17 08:59] LABS: HEMATOCRIT 32.2 % (36.0-47.0); HEMOGLOBIN 10.8 g/dL (12.0-15.5); HGB HCT DIFFERENCE 0.2; MEAN CORPUSCULAR HEMOGLOBIN 29.4 pg (27.0-33.4); MEAN CORPUSCULAR HGB CONC 33.6 g/dL (32.0-36.0); MEAN CORPUSCULAR VOLUME 88 fl (80-97); RED BLOOD COUNT 3.68 10^6/uL (3.72-5.28); RED CELL DISTRIBUTION WIDTH 13.4 % (11.5-14.0); WHITE BLOOD COUNT 10.3 10^3/uL (4.0-10.5)
[2016-04-17] MEDS: PRENATAL VITAMIN W-O CA NO5/FE FUMARATE/FA CAPSULE PO SCH (09:34)
[2016-04-17] MEDS: SENNOSIDES/DOCUSATE 8.6-50 MG 1 EACH TABLET PO SCH (09:35)
[2016-04-17] MEDS: FERROUS SULFATE 325 MG TABLET PO SCH ×2 (09:35→17:36)
[2016-04-17] MEDS: DOCUSATE SODIUM 100 MG CAPSULE PO SCH ×2 (09:36→17:36)
--- NOTE | 2016-04-17 09:58 | PDOC PROGRESS REPORT ---
Subjective-OB Subjective: Post Delivery Day: 35 year old. Denies any needs at this time bonding well with ff@u-2 mild lochia bottlefeeding anticipate d/c in AM Physical Exam (OB) Vital Signs: Temp Pulse Resp BP Pulse Ox 97.6 F 74 16 141/92 H 100 04/17/16 08:07 04/17/16 08:07 04/17/16 08:07 04/17/16 08:07 04/17/16 08:07 Intake & Output 04/16/16 04/17/16 04/18/16 06:59 06:59 06:59 Weight 67.5 kg - PIH/Pre-Eclampsia Clonus: Negative - Lochia Lochia Amount: Scant < 10 ml Lochia Color: Rubra/Red - Abdomen Description: Soft, Flat Hernia Present: No Fundal Description: Firm, Midline Fundal Height: u/u - u/2 Objective-Diagnostic Laboratory: 04/17/16 08:43 04/17/16 08:43 WBC 10.3 RBC 3.68 L Hgb 10.8 L Hct 32.2 L MCV 88 MCH 29.4 MCHC 33.6 RDW 13.4 Plt Count 152
[2016-04-18] MEDS: IBUPROFEN 800 MG TABLET PO SCH (06:08)
[2016-04-18 09:07] VITALS: BP 126/79
[2016-04-18] MEDS: FERROUS SULFATE 325 MG TABLET PO SCH (10:28)
[2016-04-18] MEDS: SENNOSIDES/DOCUSATE 8.6-50 MG 1 EACH TABLET PO SCH (10:28)
[2016-04-18] MEDS: PRENATAL VITAMIN W-O CA NO5/FE FUMARATE/FA CAPSULE PO SCH (10:28)
[2016-04-18] MEDS: DOCUSATE SODIUM 100 MG CAPSULE PO SCH (10:28)
--- NOTE | 2016-04-18 10:43 | PDOC DISCHARGE SUMMARY ---
Final Diagnosis Discharge Date: 04/18/16 - Final Diagnosis (1) Vaginal delivery Is this a current diagnosis for this admission?: Yes Discharge Data - Discharge Medication Home Medications: Vit#96/Ferrous Fum/FA [ Tablet] 1 tab PO DAILY 03/01/16 Reason(s) for Admission: Induction of Labor Procedures: NST Intrapartum Procedure(s): Spontaneous Vaginal Delivery Complication(s): Laceration-Perineal Laceration-Degree: 1st - Diagnosis Test Laboratory: Temp Pulse Resp BP Pulse Ox 97.8 F 70 15 126/79 H 100 04/18/16 09:34 04/18/16 09:34 04/18/16 09:34 04/18/16 09:34 04/18/16 09:34 04/15/16 04/15/16 04/17/16 20:10 20:15 08:43 RBC 4.20 3.68 L Hgb 12.4 10.8 L Hct 36.0 32.2 L Urine Opiates Screen NEGATIVE - Discharge information/Instructions Discharge Activity: Activity As Tolerated, Balance Activity w/Rest, No Lifting Over 10 Pounds, No Lifting/Push/Pulling, Pelvic Rest, Slowly Increase Activity, No tub bath, Walk Frequently Discharge Diet: Regular Disposition: HOME, SELF-CARE Follow up with: [facility] in: 4, Weeks
--- NOTE | 2016-04-28 15:06 | Delivery Summary ---
Del Sum A-C Datetime Report Generated by CPN: 04/28/2016 15:06 ADMISSION DATA Chief Complaint: Scheduled Induction of Labor Indication for Induction: Maternal Cardiac Disease; Other Indication for Induction Comment: ama Admission Impression: Term, Intrauterine ; No Active Labor; Intact Membranes; Induction of Labor Admit Provider Comments: see hx Scheduled IOL for maternal cardiac disease and AMA Cervidil overnight Plan for pitocin in AM DELIVERY PERSONNEL Delivery Doctor:: Mary Haley CNM Nurse Laundry Operator Certified:: Mary Haley CNM Labor and Delivery Nurse:: Magy Aguilera lever tender Nurse:: CHELO Santos Balance Staff Inspector/PHONE CIRCUIT OPERATOR: [facility] Additional Personnel: : CHELO Deluca MATERNAL INFORMATION Delivery Anesthesia: None Medications After Delivery: Pitocin Bolus-Please Comment Meds After Delivery Comment: Pitocin 20 units in 1000 ml NSS open for bolus Estimated Blood Loss (ml): 200 Maternal Complications: Precipitous Labor (<3hrs) Provider Comments: of viable female infant, head, shoulders, and body delivered without difficulty. with spontaneous cry and respirations, to maternal abdomen, cord clamped x2, infant cut free by pts after 2 min delay, spontaneous delivery of placenta via flores mechanism, appears intact, 3 VC. Perineum and vagina inspected superficial laceration noted on perineum and periclitoral, not bleeding, not repaired. Hemostasis acheived with external fundal massage and IV pitocin. Mother and infant in stable condition. Routine pp care. LABOR SUMMARY EDC: 04/22/2016 00:00 No. Babies in Womb: 1 Attempted: No Labor Anesthesia: IV Sedation LABOR INFORMATION Reason for Induction: Other Reason for Induction- Other: AMA Onset of Labor: 04/16/2016 04:50 Complete Dilatation: 04/16/2016 07:28 Cervical Ripening Agents: Cervidil Oxytocin: N/A Group B Beta Strep: negative (Annotations: Data stored by [facility] on behalf of user) Steroids Given: None Reason Steroids Not Administered: Not Applicable MEMBRANES Membranes Rupture Method: Spontaneous Rupture of Membranes: 04/16/2016 04:50 Length of Rupture (hr): 2.67 Amniotic Fluid Color: Clear Amniotic Fluid Amount: Small Amniotic Fluid Odor: Normal STAGES OF LABOR Stage 1 hr: 2 Stage 1 min: 38 Stage 2 hr: 0 Stage 2 min: 2 Stage 3 hr: 0 Stage 3 min: 5 Total Time in Labor hr: 2 Total Time in Labor min: 45 VAGINAL DELIVERY Episiotomy: None Laceration Extension: N/A Laceration Type: None Laceration Repair: Not Applicable Sponge Count Correct: N/A Sharps Count Correct: N/A CSECTION DELIVERY Primary Indication: N/A Secondary Indication: N/A CSection Incidence: N/A Labor: N/A Elective: N/A CSection Incision: N/A BABY A INFORMATION Infant Delivery Date/Time: 04/16/2016 07:30 Method of Delivery: Vaginal Born in Route : No : N/A Forceps: N/A Vacuum Extraction: N/A Shoulder Dystocia : No PRESENTATION/POSITION BABY A Presentation: Cephalic Cephalic Presentation: Vertex Vertex Position: Right Occipital Anterior Breech Presentation: N/A PLACENTA INFORMATION BABY A Placenta Delivery Time : 04/16/2016 07:35 Placenta Method of Delivery: Spontaneous Placenta Status: Delivered SCORES BABY A Heart Rate 1 min: >100 bpm Resp Effort 1 min: Good Cry Reflex Irritability 1 min: Cough or Sneeze or Pulls Away Muscle Tone 1 min: Active Motion Color 1 min: Body [place], Extremities Blue Resuscitation Effort 1 min: Tactile Stimulation SCORE 1 MIN: 9 Heart Rate 5 min: >100 bpm Resp Effort 5 min: Good Cry Reflex Irritability 5 min: Cough or Sneeze or Pulls Away Muscle Tone 5 min: Active Motion Color 5 min: Body [place], Extremities Blue Resuscitation Effort 5 min: N/A SCORE 5 MIN: 9 Resuscitation Effort 10 min: N/A INFANT INFORMATION BABY A Gestational Age at Delivery: 39.1 Gestational Status: Full Term- 39- 40.6 Weeks Outcome : Liveborn Condition : Stable Sex: Female IDENTIFICATION BABY A Infant Verification Date/Time: 04/16/2016 07:38 ID Band Number: [id number] Mother's Name Verified: Yes RN Verifying Infant: R Minh, RNC Additional Verifying Personnel: D Kalina, PHONE CIRCUIT OPERATOR WEIGHT/LENGTH BABY A Infant Birthweight (gm): 2740 Weight (lb): 6 Infant Weight (oz): 1 Infant Length (in): 19.25 Length (cm): 48.90 CORD INFORMATION BABY A No. Cord Vessels: 3 Nuchal Cord : N/A Cord Blood Taken: Yes-For Eval (Mom's Blood Type - or O+) Infant Suction: Mouth; Nose ASSESSMENT BABY A Complications: None Physical Findings at Delivery: Within Normal Limits Physical Findings- Other: transfer to [place] [id number] by Nursery RN Infant Respirations: Appears Normal Skin to Skin: Yes Skin to Skin Time (min): 45 Staff Scientist/ALS Called : No Infant Care By: Pritesh Callaway RNC Transferred To: Remains with Mother BABY B INFORMATION : N/A SIGNATURES Assignment: Reginaldo Smith DO Signature: with User ID: [email or web address] : with User ID: [email or web address]
== END 2016-04-18 13:00 | disposition home or self-care (01) | DRG 774 ==
LOC: LR 19:52 → 2S 04-16 13:27
PROVIDERS: ADMIT Obstetrics & Gynecology; ATTEND Obstetrics & Gynecology
PROC: 4A1HXCZ Monitoring of Products of Conception, Cardiac Rate, External Approach (ICD-10-PCS; 2016-04-15)
PROC: 3E0P7GC Introduction of Other Therapeutic Substance into Female Reproductive, Via Natural or Artificial Opening (ICD-10-PCS; 2016-04-15)
PROC: 10E0XZZ Delivery of Products of Conception, External Approach (ICD-10-PCS; principal; 2016-04-16)
DX: O62.3 Precipitate labor (principal); O99.413 Diseases of the circulatory system complicating pregnancy, third trimester; O99.334 Smoking (tobacco) complicating childbirth; O70.0 First degree perineal laceration during delivery; F17.210 Nicotine dependence, cigarettes, uncomplicated; Z3A.39 39 weeks gestation of pregnancy; Z37.0 Single live birth; I25.10 Atherosclerotic heart disease of native coronary artery without angina pectoris
CPT/HCPCS: 36415; 80307; 81005; 85025; 85027; 86592; 86850; 86900; 86901; J2300; J2550; J2590; J3490

== ENCOUNTER 2016-04-25 12:03 | Emergency (ER) | payer MEDICAID ==
[2016-04-25 12:17] VITALS: BP 127/81
--- NOTE | 2016-04-25 12:17 | ER Document Report ---
ED Medical Screen (RME) - General Stated Complaint: VAGINAL BLEEDING Mode of Arrival: Ambulatory Information source: Patient Notes: Patient is status post vaginal delivery on 04/16/2016. Patient states she initially had some vaginal bleeding and then it stopped. Patient states she was today and had heavy vaginal bleeding. hx: None I have greeted and performed a rapid initial assessment of this patient. A comprehensive ED assessment and evaluation of the patient, analysis of test results and completion of the medical decision making process will be conducted by additional ED providers. TRAVEL OUTSIDE OF THE [place] IN LAST 30 DAYS: No - Related Data Allergies/Adverse Reactions: No Known Allergies Allergy (Verified 04/25/16 12:16) Past Medical History - Past Medical History Cardiac Medical History: Reports: Hx Heart Attack - x3 Past Surgical History: Reports: Hx Cardiac Catheterization. Denies: Hx Coronary Artery Bypass Graft, Hx Coronary Stent, Hx Pacemaker - Immunizations Immunizations up to date: Yes Hx Diphtheria, Pertussis, Tetanus Vaccination: Yes Physical Exam - General General appearance: Appears well, Alert In distress: None
[2016-04-25] MEDS ORDERED: IBUPROFEN 600 MG TABLET PO ONE (13:36)
--- NOTE | 2016-04-25 13:36 | ER Document Report ---
ED GI/ - General Chief Complaint: Vaginal Bleeding Stated Complaint: VAGINAL BLEEDING Time seen by provider: 13:15 Mode of Arrival: Ambulatory Information source: Patient, [facility] Records Notes: This 35-year-old female patient comes in complaining of vaginal bleeding with clots. She had a normal spontaneous vaginal delivery on 04/16/2016. She reports the bleeding stopped 2 days ago. She did have some low back pain and cramping yesterday that felt like labor pains. This morning she began bleeding with clots and reports the bleeding has been heavy. She is not breast-feeding. She did take some Motrin yesterday for the back pain, she has not taken anything today. TRAVEL OUTSIDE OF THE [place] IN LAST 30 DAYS: No - Related Data Allergies/Adverse Reactions: No Known Allergies Allergy (Verified 04/25/16 12:16) Past Medical History - General Information source: Patient - Social History Smoking Status: Current Every Day Smoker Chew tobacco use (# tins/day): No Frequency of alcohol use: None Drug Abuse: None Occupation: unemployed Lives with: Family, Friend Family History: Arthritis, CAD, DM, Hyperlipidemia, Hypertension, Malignancy Patient has suicidal ideation: No Patient has homicidal ideation: No - Medical History Medical History: Negative Surgical Hx: Negative - Immunizations Immunizations up to date: Yes Hx Diphtheria, Pertussis, Tetanus Vaccination: Yes Review of Systems - Review of Systems Constitutional: No symptoms reported EENT: No symptoms reported Cardiovascular: No symptoms reported Respiratory: No symptoms reported Gastrointestinal: No symptoms reported Genitourinary: See HPI Female Genitourinary: See HPI Musculoskeletal: No symptoms reported Skin: No symptoms reported Hematologic/Lymphatic: No symptoms reported Neurological/Psychological: No symptoms reported Physical Exam - Vital signs Vitals: Temp Pulse Resp BP Pulse Ox 98.0 F 86 18 127/81 H 97 04/25/16 12:15 04/25/16 12:15 04/25/16 12:15 04/25/16 12:15 04/25/16 12:15 Interpretation: Normal - General General appearance: Appears well, Alert In distress: None - HEENT Head: Normocephalic, Atraumatic Eyes: Normal Pupils: PERRL - Respiratory Respiratory status: No respiratory distress - Cardiovascular Rhythm: Regular - Abdominal Inspection: Normal Bowel sounds: Normal Tenderness: Tender - There is some tenderness to palpate across the lower abdomen, she states this is not really any different than the ways been since she delivered. - Back Back: Normal - Extremities General upper extremity: Normal inspection General lower extremity: Normal inspection - Neurological Neuro grossly intact: Yes - Psychological Associated symptoms: Normal affect, Normal mood - Skin Skin Temperature: Warm Skin Moisture: Dry Skin Color: Normal Course - Re-evaluation Re-evalutation: 04/25/16 13:39 The PCT reports when she went into her blood, the patient asked to forego workup and to go home and follow-up with her [facility] doctor on Wednesday. - Vital Signs Vital signs: Temp Pulse Resp BP Pulse Ox 98.0 F 86 18 127/81 H 97 04/25/16 12:15 04/25/16 12:15 04/25/16 12:15 04/25/16 12:15 04/25/16 12:15 Discharge - Discharge Clinical Impression: bleeding Qualifiers: hemorrhage type: unspecified Qualified Code(s): O72.1 - Other immediate hemorrhage Condition: Stable Disposition: AGAINST MEDICAL ADVICE Additional Instructions: You have elected not to have a workup for your presenting complaint of vaginal bleeding with clots and back pain. You have decided to go home and follow-up with your [facility] doctor on Wednesday. Feel free to return anytime if your situation changes. RETURN TO THE EMERGENCY ROOM IF ANY NEW OR WORSENING SYMPTOMS. Referrals: ISIDORO BRITT MD [Primary Care Provider] - 04/27/16
== END 2016-04-25 13:54 | disposition left against medical advice (07) ==
LOC: ER 12:03
DX: O72.1 Other immediate postpartum hemorrhage (principal); N93.9 Abnormal uterine and vaginal bleeding, unspecified; F17.210 Nicotine dependence, cigarettes, uncomplicated
CPT/HCPCS: 99283

== ENCOUNTER 2016-04-28 08:28 | Day surgery (SDC) | payer MEDICAID ==
[2016-04-28 09:32] LABS: HEMATOCRIT 44.6 % (36.0-47.0); HEMOGLOBIN 14.7 g/dL (12.0-15.5); HGB HCT DIFFERENCE -0.5; MEAN CORPUSCULAR HEMOGLOBIN 29.1 pg (27.0-33.4); MEAN CORPUSCULAR VOLUME 88 fl (80-97); RED BLOOD COUNT 5.06 10^6/uL (3.72-5.28); WHITE BLOOD COUNT 5.8 10^3/uL (4.0-10.5)
[2016-04-28] MEDS ORDERED: MIDAZOLAM 2 MG/2 ML INJ ONE (11:19)
[2016-04-28] MEDS ORDERED: PROPOFOL INJ 200 MG/20 ML VIAL IV ONE (11:19)
[2016-04-28] MEDS ORDERED: FENTANYL CITRATE INJ/PF 100 MCG/2 ML AMPUL ONE ×2 (11:19→12:16)
[2016-04-28] MEDS ORDERED: ONDANSETRON HCL INJ/PF 4 MG/2 ML SDV ONE (11:19)
[2016-04-28] MEDS ORDERED: FENTANYL CITRATE INJ/PF 100 MCG/2 ML AMPUL IV PRN ×2 (11:47)
[2016-04-28] MEDS ORDERED: PROMETHAZINE HCL INJ 25 MG/1 ML VIAL IV PRN ×2 (11:47)
[2016-04-28] MEDS ORDERED: DIPHENHYDRAMINE HCL 50 MG/ML VIAL IV PRN (11:47)
[2016-04-28] MEDS ORDERED: MEPERIDINE HCL/PF INJ 25 MG/1 ML DISP.SYRIN IV PRN (11:47)
[2016-04-28] MEDS ORDERED: MORPHINE SULFATE 10 MG/ML INJ IV PRN (11:47)
[2016-04-28] MEDS ORDERED: OXYCODONE-ACETAMINOPHEN 5-325 MG TABLET PO PRN ×2 (11:47)
[2016-04-28] MEDS ORDERED: KETOROLAC TROMETHAMINE INJ/PF 30 MG/1 ML SDV ONE (12:13)
[2016-04-28] MEDS ORDERED: KETOROLAC TROMETHAMINE INJ/PF 30 MG/1 ML SDV IV ONE (12:15)
[2016-04-28] MEDS: FENTANYL CITRATE INJ/PF 100 MCG/2 ML AMPUL IV PRN ×2 (12:18→12:28)
--- NOTE | 2016-04-28 12:38 | OPERATIVE REPORT E ---
Operative Report NAME: LUIS HERNANDEZ : 1980 AGE: 35Y DATE OF SURGERY: 04/24/2016 ROOM: PREOPERATIVE DIAGNOSIS: Retained products of conception. POSTOPERATIVE DIAGNOSIS: Retained products of conception. SURGEON: KEMAR BARRON M.D. ANESTHESIOLOGIST: Dr. Del Castillo ANESTHESIA: LMA. FINDINGS: A somewhat dilated cervix, dilated to approximately 1 cm. A moderate amount of products of conception obtained and some purulent discharge from the urethra was noted. COMPLICATIONS: None. ESTIMATED BLOOD LOSS: 50 mL. SPECIMENS REMOVED: Products of conception. There was also a urethral culture taken. PROCEDURE: Suction D and C. PROCEDURE IN DETAIL: The patient was taken to the operating room, prepared and draped in the normal sterile fashion in the dorsal lithotomy position. Under sterile conditions, the in-and-out catheter was performed of approximately 100 mL of clear urine and at this time, the purulent urethral discharge was noted. The sterile speculum was then placed into the vagina and the cervix was grasped on the anterior aspect with a single-tooth tenaculum. The cervix was noted to be approximately 1-2 cm dilated already. We continued to serially dilate in order to accommodate a 12 mm suction cannula. The suction cannula was introduced without difficulty and products of conception were obtained with approximately 3 passes of the suction cannula. The sharp banjo curette was then used to check for addition products and none were found to be forthcoming, so the procedure was concluded. Due to the finding at the urethra, a urethral culture was collected as there did appear to be some questionable purulent discharge and there were no significant other findings on the patient's clinical history. The patient tolerated the procedure well. Sponge, lap, and needle counts were correct x2 and the patient was taken to recovery in a stable condition. DICTATING PHYSICIAN: KEMAR BARRON M.D. [id number] PHY#: [id number] ID: [id number] JOB#: [id number] ACCT: [id number] cc:KEMAR BARRON M.D. > MTDD
[2016-04-28] MEDS ORDERED: MORPHINE SULFATE 10 MG/ML INJ ONE (12:40)
[2016-04-28] MEDS ORDERED: OXYCODONE-ACETAMINOPHEN 5-325 MG TABLET ONE (13:27)
[2016-04-28 16:07] VITALS: BP 123/78
== END 2016-04-28 14:50 | disposition home or self-care (01) ==
LOC: OROUT 08:28
PROVIDERS: ATTEND Obstetrics & Gynecology
PROC: 10D17ZZ Extraction of Products of Conception, Retained, Via Natural or Artificial Opening (ICD-10-PCS; principal; 2016-04-28 10:30)
DX: O73.1 Retained portions of placenta and membranes, without hemorrhage (principal); F17.210 Nicotine dependence, cigarettes, uncomplicated
CPT/HCPCS: 86900; 86901; 36415; 87070; 87205; 86850; 85027; 87075; 87077; 88305 ×2; 59812; J2250; J3010; J1885; J2270; J2405; J2704; 940

== ENCOUNTER 2016-09-12 21:15 | Emergency (ER) | payer MEDICAID ==
[2016-09-12] MEDS ORDERED: PROMETHAZINE HCL INJ 50 MG/1 ML VIAL IM ONE (22:06)
[2016-09-12] MEDS ORDERED: ONDANSETRON HCL INJ/PF 4 MG/2 ML SDV IV ONE (22:06)
[2016-09-12] MEDS ORDERED: NORMAL SALINE 1000 ML 1,000 ML IV ONE (22:07)
[2016-09-12] MEDS ORDERED: PROMETHAZINE HCL INJ 25 MG/1 ML VIAL ONE (22:29)
[2016-09-12 23:17] LABS: ABSOLUTE EOSINOPHILS # (AUTO) 0.1 10^3/uL (0.0-0.6); ABSOLUTE LYMPHOCYTES (AUTO) 1.6 10^3/uL (0.5-4.7); ABSOLUTE MONOCYTES (AUTO) 0.5 10^3/uL (0.1-1.4); ABSOLUTE NEUT (AUTO) 8.4 10^3/uL (1.7-8.2); BASOPHILS % (AUTO) 0.4 % (0-2); EOSINOPHILS % (AUTO) 0.8 % (0-6); HEMOGLOBIN 14.7 g/dL (12.0-15.5); HGB HCT DIFFERENCE 0.1; LYMPHOCYTES % (AUTO) 15.5 % (13-45); MEAN CORPUSCULAR HEMOGLOBIN 29.8 pg (27.0-33.4); MEAN CORPUSCULAR HGB CONC 33.5 g/dL (32.0-36.0); MEAN CORPUSCULAR VOLUME 89 fl (80-97); MONOCYTES % (AUTO) 4.3 % (3-13); RED BLOOD COUNT 4.94 10^6/uL (3.72-5.28); RED CELL DISTRIBUTION WIDTH 13.3 % (11.5-14.0); WHITE BLOOD COUNT 10.6 10^3/uL (4.0-10.5)
[2016-09-12 23:23] LABS: ALANINE AMINOTRANSFERASE 25 U/L (9-52); ALBUMIN 4.3 g/dL (3.5-5.0); ALKALINE PHOSPHATASE 68 U/L (38-126); ANION GAP 11 (5-19); ASPARTATE AMINO TRANSFERASE 14 U/L (14-36); BILIRUBIN,DIRECT 0.3 mg/dL (0.0-0.4); BILIRUBIN,TOTAL 0.4 mg/dL (0.2-1.3); BLOOD UREA NITROGEN 13 mg/dL (7-20); CARBON DIOXIDE 25 mmol/L (22-30); CHLORIDE 106 mmol/L (98-107); CREATININE RESULT 0.67 mg/dL (0.52-1.25); GLUCOSE 94 mg/dL (75-110); MAGNESIUM 2.1 mg/dL (1.6-2.3); SODIUM 141.8 mmol/L (137-145); TOTAL PROTEIN 7.2 g/dL (6.3-8.2)
[2016-09-13 00:30] LABS: AMORPHOUS SEDIMENT,URINE TRACE /HPF; APPEARANCE,URINE SLIGHTLY-CLOUDY; BILIRUBIN,URINE NEGATIVE (NEGATIVE); GLUCOSE, URINE NEGATIVE (NEGATIVE); KETONES,URINE 20 mg/dL (NEGATIVE); LEUKOCYTE ESTERASE,URINE LARGE (NEGATIVE); NITRITE,URINE NEGATIVE (NEGATIVE); PROTEIN,URINE NEGATIVE (NEGATIVE); URINE SPECIFIC GRAVITY 1.014
--- NOTE | 2016-09-13 01:02 | ER Document Report ---
ED General - General Chief Complaint: Nausea/Vomiting Stated Complaint: VOMITING,HEADACHE Time Seen by Provider: 09/12/16 21:59 Notes: Patient is a 28-year-old female presents with complaint of feeling that she is dehydrated. She says she has a headache and has been vomiting. She says her symptoms started this week when they lost their air conditioner in her house. This is in the mid to upper 90s outside the house was just as hot she started to feel sick and nauseous when he struck the very hot. She said she then started vomiting and after vomiting she eventually developed some headache. She denies any diarrhea. No fevers. No recent infections. No abnormal vaginal discharge or bleeding. No other complaints at this time. TRAVEL OUTSIDE OF THE [place] IN LAST 30 DAYS: No - Related Data Allergies/Adverse Reactions: No Known Allergies Allergy (Verified 09/12/16 22:39) Home Medications: Current Home Medications Escitalopram Oxalate 1 tab PO QHS 09/13/16 [History] Gabapentin [Gabapentin] 1 cap PO BID 09/13/16 [History] Past Medical History - Social History Smoking Status: Current Every Day Smoker Chew tobacco use (# tins/day): No Frequency of alcohol use: None Drug Abuse: None Family History: Arthritis, CAD, DM, Hyperlipidemia, Hypertension, Malignancy Patient has suicidal ideation: No Patient has homicidal ideation: No - Past Medical History Cardiac Medical History: Denies: Hx Coronary Artery Disease, Hx Heart Attack, Hx Hypertension Pulmonary Medical History: Denies: Hx Asthma, Hx Bronchitis, Hx COPD, Hx Pneumonia Neurological Medical History: Denies: Hx Cerebrovascular Accident, Hx Seizures Renal/ Medical History: Denies: Hx Peritoneal Dialysis Musculoskeltal Medical History: Denies Hx Arthritis Psychiatric Medical History: Reports: Hx Depression Past Surgical History: Reports: Hx Cardiac Catheterization, Hx Gynecologic Surgery - Emergency D&C. Denies: Hx Coronary Artery Bypass Graft, Hx Coronary Stent, Hx Pacemaker - Immunizations Immunizations up to date: Yes Hx Diphtheria, Pertussis, Tetanus Vaccination: Yes Review of Systems - Review of Systems Notes: My Normal Review Basic REVIEW OF SYSTEMS: CONSTITUTIONAL : Denies fever, chills, or sweats. Denies recent illness. EENT: Denies eye, ear, throat, or mouth pain or symptoms. Denies nasal or sinus congestion. CARDIOVASCULAR: Denies chest pain. RESPIRATORY: Denies cough, cold, or chest congestion. Denies shortness of breath, difficulty breathing, or wheezing. GASTROINTESTINAL: Denies abdominal pain. Recurrent vomiting. GENITOURINARY: Denies difficulty urinating, painful urination, burning, frequency, or blood in urine. FEMALE GENITOURINARY: Denies vaginal bleeding, abnormal or irregular periods. LMP: MUSCULOSKELETAL: Denies neck or back pain or joint pain or swelling. SKIN: Denies rash or skin lesions. NEUROLOGICAL: Denies altered mental status or loss of consciousness.Has a headache. Denies weakness or paralysis or loss of use of either side. Denies problems with gait or speech. Denies sensory or motor loss. ALL OTHER SYSTEMS REVIEWED AND NEGATIVE. Physical Exam - Vital signs Vitals: Temp Pulse Resp BP Pulse Ox 98.2 F 73 16 131/79 H 99 09/12/16 21:27 09/12/16 21:27 09/12/16 21:27 09/12/16 21:27 09/12/16 21:27 - Notes Notes: General Appearance: Well nourished, alert, cooperative, no acute distress, no obvious discomfort. Actively vomiting during exam. Vitals: reviewed, See vital signs table. Head: no swelling or tenderness to the head Eyes: PERRL, EOMI, Conjuctiva clear Mouth: No decreasd moisture Throat: No tonsillar inflammation, No airway obstruction, No lymphadenopathy Neck: Supple, no neck tenderness, No thyromegaly Lungs: No wheezing, No rales, No rhonci, No accessory muscle use, good air exchange bilaterally. Heart: Normal rate, Regular rythm, No murmur, no rub Abdomen: Normal BS, soft, No rigidity, No reproducible abdominal tenderness, No guarding, no rebound, no abdominal masses, no organomegaly Extremities: strength 5/5 in all extremities, good pulses in all extremities, no swelling or tenderness in the extremities, no edema. Skin: warm, dry, appropriate color, no rash Neuro: speech clear, oriented x 3, normal affect, responds appropriately to questions. No nerves II through XII are intact. Distal sensation intact. Patient moves all extremities without difficulty. No focal neurologic deficits on exam. Course - Vital Signs Vital signs: Temp Pulse Resp BP Pulse Ox 98.2 F 56 L 16 96/61 L 99 09/13/16 01:22 09/13/16 01:22 09/13/16 01:22 09/13/16 01:22 09/13/16 01:22 - Laboratory Result Diagrams: 09/12/16 22:55 09/12/16 22:55 Laboratory results interpreted by me: 09/12/16 09/13/16 22:55 00:20 WBC 10.6 H Seg Neutrophils % 79.0 H Absolute Neutrophils 8.4 H Urine Ketones 20 H Urine Blood SMALL H Urine Urobilinogen 4.0 H Ur Leukocyte Esterase LARGE H - Transfer of Care Notes: 09/13/16 03:08 Is feeling much improved after the IV fluids and nausea medicine. Her laboratory evaluation is unremarkable except for possible UTI. Patient says she has had urinary tract infections in the past which have led to vomiting. We will treat her. I suspect that she has a little bit of heat exhaustion as well as UTI. I encourage her to stay in the hotel room or something with her condition until her AC is fixed. I told her that she has been in her condition for at least a minimum of the next 24 hours. I encouraged her to drink liquids. Encouraged to return to ER if she has recurrent vomiting, fevers, or feels unwell. Patient agrees with plan and will be discharged home. Dictation of this chart was performed using voice recognition software; therefore, there may be some unintended grammatical errors. Discharge - Discharge Clinical Impression: Vomiting Qualifiers: Vomiting type: unspecified Vomiting Intractability: unspecified Nausea presence : with nausea Qualified Code(s): R11.2 - Nausea with vomiting, unspecified UTI (urinary tract infection) Qualifiers: Urinary tract infection type: site unspecified Hematuria presence: without hematuria Qualified Code(s): N39.0 - Urinary tract infection, site not specified Condition: Good Disposition: HOME, SELF-CARE Additional Instructions: Please stay in the air conditioning as much as possible. Please take the antibiotic as prescribed. Please follow up with a doctor in 3-4 days for reevaluation. Please drink fluids to stay hydrated. Return to the ER immediately if you have fevers, recurrent vomiting, or feel that you are worsening. Prescriptions: Ciprofloxacin HCl [Cipro 500 mg Tablet] 500 mg PO BID #10 tablet Promethazine HCl [Phenergan 25 mg Tablet] 1 tab PO Q6H PRN #15 tablet PRN Reason: Referrals: FRANCISCO CHATTERJEE MD [Primary Care Provider] - Follow up as needed
[2016-09-13] MEDS ORDERED: ONDANSETRON ODT 4 MG TAB (6 TAB/DSPK) PO PRN (01:06)
[2016-09-13] MEDS ORDERED: CIPROFLOXACIN HCL 500 MG TABLET PO ONE (01:07)
[2016-09-13 01:28] VITALS: BP 96/61
== END 2016-09-13 01:30 | disposition home or self-care (01) ==
LOC: ER 21:15
DX: N39.0 Urinary tract infection, site not specified (principal); R11.2 Nausea with vomiting, unspecified; R51 Headache; F17.200 Nicotine dependence, unspecified, uncomplicated
CPT/HCPCS: 99283; 96361; 96374; 36415; 83690; 83735; 84703; 85025; 80053; 81001; J2405; J7030

== ENCOUNTER 2016-12-23 05:11 | Day surgery (SDC) | payer MEDICAID ==
[2016-12-21 11:37] LABS: HEMATOCRIT 43.2 % (36.0-47.0); HEMOGLOBIN 14.8 g/dL (12.0-15.5); HGB HCT DIFFERENCE 1.2; MEAN CORPUSCULAR HEMOGLOBIN 30.1 pg (27.0-33.4); MEAN CORPUSCULAR HGB CONC 34.3 g/dL (32.0-36.0); MEAN CORPUSCULAR VOLUME 88 fl (80-97); RED BLOOD COUNT 4.92 10^6/uL (3.72-5.28); RED CELL DISTRIBUTION WIDTH 12.8 % (11.5-14.0); WHITE BLOOD COUNT 8.7 10^3/uL (4.0-10.5)
[2016-12-21 11:42] LABS: APPEARANCE,URINE CLEAR; BILIRUBIN,URINE NEGATIVE (NEGATIVE); GLUCOSE, URINE NEGATIVE (NEGATIVE); KETONES,URINE NEGATIVE (NEGATIVE); LEUKOCYTE ESTERASE,URINE NEGATIVE (NEGATIVE); NITRITE,URINE NEGATIVE (NEGATIVE); PROTEIN,URINE NEGATIVE (NEGATIVE); URINE SPECIFIC GRAVITY 1.008; UROBILINOGEN,URINE NEGATIVE mg/dL (<2.0)
[2016-12-21 11:56] LABS: ANION GAP 10 (5-19); BLOOD UREA NITROGEN 13 mg/dL (7-20); CALCIUM 9.4 mg/dL (8.4-10.2); CARBON DIOXIDE 25 mmol/L (22-30); CHLORIDE 108 mmol/L (98-107); CREATININE RESULT 0.66 mg/dL (0.52-1.25); GLUCOSE 90 mg/dL (75-110); POTASSIUM 4.2 mmol/L (3.6-5.0); SODIUM 143.1 mmol/L (137-145)
--- NOTE | 2016-12-21 12:45 | RADIOLOGY REPORT (SQ) ---
EXAM DESCRIPTION: CHEST PA/LATERAL COMPLETED DATE/TIME: 12/21/2016 11:27 am REASON FOR STUDY: PREOP COMPARISON: None. EXAM PARAMETERS: NUMBER OF VIEWS: two views TECHNIQUE: Digital Frontal and Lateral radiographic views of the chest acquired. RADIATION DOSE: NA LIMITATIONS: none FINDINGS: LUNGS AND PLEURA: No opacities, masses or pneumothorax. No pleural effusion. MEDIASTINUM AND HILAR STRUCTURES: No masses or contour abnormalities. HEART AND VASCULAR STRUCTURES: Heart normal size. No evidence for failure. BONES: No acute findings. HARDWARE: None in the chest. OTHER: No other significant finding. IMPRESSION: NO SIGNIFICANT RADIOGRAPHIC FINDING IN THE CHEST. TECHNICAL DOCUMENTATION: JOB ID: [id number] [employer]- All Rights Reserved
--- NOTE | 2016-12-21 18:38 | EKG REPORT ---
SEVERITY:- NORMAL ECG - SINUS RHYTHM : Confirmed by: Gregorio Baum 21-Dec-2016 18:36:53
[~2016-12-23 05:11] MED LIST: CEFAZOLIN 1 GM/D5W RTU 1 GM/50 ML RTUPB IV PRN; LACTATED RINGERS 1000 ML IV PRN; LIDOCAINE 0.5% INJ-PF (5 MG/ML) 50 ML SDV SUBCUT PRN
[2016-12-23] MEDS ORDERED: ALBUTEROL SULFATE 0.083% NEB 2.5 MG/3 ML AMPUL NEB ONE (05:51)
[2016-12-23] MEDS ORDERED: FENTANYL CITRATE INJ/PF 100 MCG/2 ML AMPUL ONE ×2 (06:42→08:37)
[2016-12-23] MEDS ORDERED: HYDROMORPHONE HCL INJ/PF 2 MG/ML AMPULE ONE (06:42)
[2016-12-23] MEDS ORDERED: MIDAZOLAM 2 MG/2 ML INJ ONE (06:43)
[2016-12-23] MEDS ORDERED: ACETAMINOPHEN 100 ML IV ONE (06:43)
[2016-12-23] MEDS ORDERED: PROPOFOL INJ 200 MG/20 ML VIAL IV ONE (06:43)
[2016-12-23] MEDS ORDERED: FAMOTIDINE INJ/PF 20 MG/2 ML SDV IV ONE (06:58)
[2016-12-23] MEDS ORDERED: SCOPOLAMINE HYDROBROMIDE 1.5 MG PATCH.TD72 ONE (07:00)
[2016-12-23] MEDS ORDERED: LIDOCAINE 1%/EPINEPHRINE INJ 20 ML VIAL ONE (07:32)
[2016-12-23] MEDS ORDERED: MORPHINE SULFATE 10 MG/ML INJ IV PRN ×2 (07:40→08:41)
[2016-12-23] MEDS ORDERED: MEPERIDINE HCL/PF INJ 25 MG/1 ML DISP.SYRIN IV PRN (07:40)
[2016-12-23] MEDS ORDERED: PROMETHAZINE HCL INJ 25 MG/1 ML VIAL IV PRN (07:40)
[2016-12-23] MEDS ORDERED: DIPHENHYDRAMINE HCL 50 MG/ML VIAL IV PRN (07:40)
[2016-12-23] MEDS ORDERED: FENTANYL CITRATE INJ/PF 100 MCG/2 ML AMPUL IV PRN ×3 (07:40)
[2016-12-23] MEDS ORDERED: MORPHINE SULFATE 10 MG/ML INJ INJ PRN ×2 (08:41→10:30)
[2016-12-23] MEDS ORDERED: MORPHINE SULFATE 10 MG/ML INJ IM PRN (08:42)
[2016-12-23] MEDS ORDERED: PROMETHAZINE HCL INJ 25 MG/1 ML VIAL IM PRN (08:42)
[2016-12-23] MEDS: HYDROMORPHONE HCL INJ/PF 2 MG/ML AMPULE ONE ×3 (08:51→09:11)
[2016-12-23] MEDS ORDERED: IBUPROFEN INJ 800 MG/8 ML VIAL IV ONE (08:51)
[2016-12-23] MEDS: MORPHINE SULFATE 10 MG/ML INJ INJ PRN ×2 (11:06→13:14)
[2016-12-23] MEDS: IBUPROFEN 800 MG TABLET PO SCH ×3 (11:16→18:04)
[2016-12-23] MEDS: CEFAZOLIN 1 GM/D5W RTU 1 GM/50 ML RTUPB IV SCH ×2 (12:15→18:05)
[2016-12-23] MEDS: OXYCODONE-ACETAMINOPHEN 5-325 MG TABLET PO PRN ×2 (12:26→22:16)
[2016-12-23] MEDS ORDERED: ONDANSETRON HCL INJ/PF 4 MG/2 ML SDV ONE (13:16)
[2016-12-23] MEDS ORDERED: NEOSTIGMINE METHYLSULFATE 10 MG/10 ML VIAL ONE (13:16)
[2016-12-23] MEDS ORDERED: LIDOCAINE 2% INJ-PF (20 MG/ML) 10 ML AMPUL ONE (13:16)
[2016-12-23] MEDS ORDERED: DEXAMETHASONE SOD PHOSPHATE INJ 4 MG/1 ML VIAL ONE (13:16)
[2016-12-23] MEDS ORDERED: ROCURONIUM BROMIDE INJ 50 MG/5 ML VIAL IV ONE (13:16)
[2016-12-23] MEDS ORDERED: GLYCOPYRROLATE INJ 0.4 MG/2 ML VIAL ONE (13:16)
[2016-12-23] MEDS ORDERED: RINGERS SOLUTION,LACTATED 1,000 ML IV PRN (13:51)
--- NOTE | 2016-12-23 14:05 | OPERATIVE REPORT E ---
Operative Report NAME: LUIS HERNANDEZ : 1980 AGE: 36Y DATE OF SURGERY: 12/23/2016 ROOM: 210 PREOPERATIVE DIAGNOSIS: Dysmenorrhea. POSTOPERATIVE DIAGNOSIS: Dysmenorrhea. PROCEDURE: Total vaginal hysterectomy with Demarco culdoplasty. SURGEON: EJSUS NUNEZ M.D. COMPLICATIONS: None. ANESTHESIA: General endotracheal. FINDINGS: Normal-appearing uterus, IUP in situ. Normal tubes and ovaries were noted bilaterally. INDICATIONS FOR PROCEDURE: The patient had profound dysmenorrhea, unresponsive to usual outpatient management, including placement of Mirena IUD. She desired attempt at definitive therapy. No guarantees were warranted. Outpatient ultrasound was nondiagnostic. Pap smear was normal. The usual risks of bleeding, infection, anesthesia, and damage to organs and tissues were discussed and the patient understood. DESCRIPTION OF PROCEDURE: The patient was taken to the operating room and placed in the modified lithotomy position and adequate anesthesia ascertained. Prepped and draped in the usual manner for a vaginal hysterectomy. After surgical timeout performed, EUA performed, bladder drained under sterile technique, a weighted speculum was placed in the posterior aspect of the vagina. Tenaculum placed over the posterior aspect of the cervix. A posterior colpotomy incision was made and uterosacral ligaments were identified bilaterally, crossclamped, suture ligated, and held. Cervix was then circumscribed and bladder reflected sequentially __throughout the procedure. The uterosacral ligaments and all the broad ligaments were clamped and cauterized using LigaSure advanced device. The extent of the uterine vessels with advancement of the anterior flap until entry into the anterior peritoneum and placement of the Ramiro retractor reflecting the bladder and ureter anteriorly to the bulk of the procedure. The pedicles were identified, crossclamped, cauterized, and suture ligated and free tied. Good hemostasis was noted throughout the procedure. These were released after identification of normal tubes and ovaries bilaterally. Demarco culdoplasty stitches were placed x2 and vagina was closed in an anterior/posterior fashion using #1 chromic catgut that was used throughout the procedure. Demarco culdoplasty stitches were tied at the completion of procedure and 1% lidocaine with epinephrine was infiltrated at the end of the posterior vagina prior to the procedure with hemostasis. At the completion of the procedure, the patient was taken to the recovery room in stable condition. DICTATING PHYSICIAN: JESUS NUNEZ M.D. [id number] PHY#: [id number] ID: [id number] JOB#: [id number] ACCT: [id number] cc:JESUS NUNEZ M.D. > [facility]
[2016-12-23] MEDS ORDERED: NICOTINE 21 MG/24 HR PATCH.TD24 TD ONE (18:45)
[2016-12-24] MEDS: OXYCODONE-ACETAMINOPHEN 5-325 MG TABLET PO PRN ×2 (04:18→09:11)
[2016-12-24 07:23] LABS: MEAN CORPUSCULAR HEMOGLOBIN 31.8 pg (27.0-33.4); MEAN CORPUSCULAR HGB CONC 36.5 g/dL (32.0-36.0); MEAN CORPUSCULAR VOLUME 87 fl (80-97); RED BLOOD COUNT 2.52 10^6/uL (3.72-5.28); WHITE BLOOD COUNT 9.5 10^3/uL (4.0-10.5)
[2016-12-24] MEDS: IBUPROFEN 800 MG TABLET PO SCH (09:12)
[2016-12-24 09:20] VITALS: BP 140/91
[2016-12-24] MEDS ORDERED: NICOTINE 21 MG/24 HR PATCH.TD24 TD SCH ×2 (10:00→17:00)
== END 2016-12-24 10:48 | disposition home or self-care (01) ==
LOC: OROUT 05:11 → 2N 09:50 → OROUT 12-24 10:48
PROVIDERS: ATTEND Specialist
PROC: 0UTC7ZZ Resection of Cervix, Via Natural or Artificial Opening (ICD-10-PCS; 2016-12-23)
PROC: 0UT97ZZ Resection of Uterus, Via Natural or Artificial Opening (ICD-10-PCS; principal; 2016-12-23 07:15)
DX: N94.6 Dysmenorrhea, unspecified (principal); F17.210 Nicotine dependence, cigarettes, uncomplicated; Z79.899 Other long term (current) drug therapy
CPT/HCPCS: 93005; 86900; 86901; 36415 ×2; 86850; 85027 ×2; 81025; 80048; 81001; 88307 ×2; 71020; 94799; 93010; 94640; 58260; J2250; J0690; J3490 ×8; J1100; J3010; J2270; J1170; J2405; J7120; J2704; S0028; J0131; J1741; 944

== ENCOUNTER 2017-04-04 02:27 | Emergency (ER) | payer MEDICAID ==
[2017-04-04 02:46] VITALS: BP 110/64
[2017-04-04] MEDS ORDERED: HYDROCODONE/ACETAMINOPHEN 5-325 MG (6 TAB/ER DISP) PO PRN (03:29)
[2017-04-04] MEDS ORDERED: NEOMY SULF/POLYMYX B SULF/HC OTIC SUSP 10 ML AS ONE (03:29)
--- NOTE | 2017-04-04 03:31 | ER Document Report ---
HPI - HPI Patient complains to provider of: Left ear pain Onset: Other - 4 days Onset/Duration: Persistent Quality of pain: Achy Pain Level: 5 Context: Patient complains of left ear pain for the past 4 days. Patient denies any fever. Patient does report drainage from left ear canal. Associated Symptoms: Earache. denies: Fever Exacerbated by: Denies Relieved by: Denies Similar symptoms previously: Yes Recently seen / treated by doctor: No - ROS ROS below otherwise negative: Yes Systems Reviewed and Negative: Yes All other systems reviewed and negative - CONSTITUTIONAL Constitutional: DENIES: Fever, Chills - EENT EENT: REPORTS: Ear Pain - GASTROINTESTINAL Gastrointestinal: DENIES: Nausea, Patient vomiting - MUSCULOSKELETAL Musculoskeletal: DENIES: Neck Pain - DERM Skin Color: Normal Skin Problems: None Past Medical History - General Information source: Patient - Social History Smoking Status: Current Every Day Smoker Smoking Education Provided: Yes Frequency of alcohol use: None Drug Abuse: None 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 Lives with: Spouse/Significant other Family History: Arthritis, CAD, DM, Hyperlipidemia, Hypertension, Malignancy - Past Medical History Cardiac Medical History: Denies: Hx Coronary Artery Disease, Hx Heart Attack, Hx Hypertension Pulmonary Medical History: Denies: Hx Asthma, Hx Bronchitis, Hx COPD, Hx Pneumonia Neurological Medical History: Denies: Hx Cerebrovascular Accident, Hx Seizures Renal/ Medical History: Denies: Hx Peritoneal Dialysis Musculoskeltal Medical History: Denies Hx Arthritis Psychiatric Medical History: Reports: Hx Anxiety, Hx Depression Past Surgical History: Reports: Hx Cardiac Catheterization, Hx Gynecologic Surgery - Emergency D&C, Hx Hysterectomy - Immunizations Immunizations up to date: Yes Hx Diphtheria, Pertussis, Tetanus Vaccination: Yes Vertical Provider Document - CONSTITUTIONAL Agree With Documented VS: Yes Exam Limitations: No Limitations General Appearance: WD/WN, No Apparent Distress - INFECTION CONTROL TRAVEL OUTSIDE OF THE [place] IN LAST 30 DAYS: No - HEENT HEENT: Atraumatic, Normocephalic. negative: Pharyngeal Exudate, Pharyngeal Tenderness, Pharyngeal Erythema, Tympanic Membrane Red, Tympanic Membrane Bulging Notes: Patient with purulent drainage in the left external auditory canal. Pain with movement of left helix, no mastoid tenderness or swelling. - NECK Neck: Normal Inspection, Supple. negative: Lymphadenopathy-Left, Lymphadenopathy-Right - RESPIRATORY Respiratory: Breath Sounds Normal, No Respiratory Distress O2 Sat by Pulse Oximetry: 100 - CARDIOVASCULAR Cardiovascular: Regular Rate, Regular Rhythm, No Murmur - BACK Back: Normal Inspection - MUSCULOSKELETAL/EXTREMETIES Musculoskeletal/Extremeties: MAEW - NEURO Level of Consciousness: Awake, Alert, Appropriate Motor/Sensory: No Motor Deficit - DERM Integumentary: Warm, Dry, No Rash Course - Vital Signs Vital signs: Temp Pulse Resp BP Pulse Ox 98.5 F 78 18 110/64 100 04/04/17 02:44 04/04/17 02:44 04/04/17 02:44 04/04/17 02:44 04/04/17 02:44 Discharge - Discharge Clinical Impression: Otitis externa Qualifiers: Otitis externa type: unspecified type Chronicity: acute Laterality: left Qualified Code(s): H60.502 - Unspecified acute noninfective otitis externa, left ear Condition: Stable Disposition: HOME, SELF-CARE Instructions: Use of Ear Drops ([facility]), Oral Narcotic Medication ([facility]), Otitis Externa ([facility]) Additional Instructions: Return immediately for any new or worsening symptoms Followup with your primary care provider, call tomorrow to make a followup appointment Follow-up with an machine learning intern for any continued problems Prescriptions: Naproxen [Naprosyn 250 Nmg Tablet] 1 tab PO BID #14 tablet Neomy Sulf/Polymyx B Sulf/Hc [Cortisporin Ear Suspension] 4 drop OT QID #1 bottle Forms: Smoking Cessation Education Referrals: FRANCISCO CHATTERJEE MD [Primary Care Provider] - [facility] as [facility] - Follow up as needed
== END 2017-04-04 04:00 | disposition home or self-care (01) ==
LOC: ER 02:27
DX: H60.502 Unspecified acute noninfective otitis externa, left ear (principal); H92.02 Otalgia, left ear; F17.200 Nicotine dependence, unspecified, uncomplicated
CPT/HCPCS: 99282; J3490

== ENCOUNTER 2017-06-25 22:38 | Emergency (ER) | payer MEDICAID ==
[2017-06-25] MEDS ORDERED: OXYCODONE-ACETAMINOPHEN 5-325 MG TABLET PO ONE (23:27)
--- NOTE | 2017-06-25 23:30 | ER Document Report ---
ED General - General Chief Complaint: Flank Pain Stated Complaint: FLANK PAIN Time Seen by Provider: 06/25/17 23:22 Mode of Arrival: Ambulatory Information source: Patient Notes: 37-year-old female presents with complaints of left lower quadrant abdominal pain left flank pain. Patient notes that she has had a history of abdominal pain in the past, had a hysterectomy but still has her ovaries, notes the pain is not low like her previous pelvic pains, she notes she felt constipated yesterday then had diarrhea and then the pain started today. Patient denies any fevers or chills denies any nausea patient denies any urinary complaints TRAVEL OUTSIDE OF THE [place] IN LAST 30 DAYS: No - HPI Onset: Yesterday Onset/Duration: Worse Quality of pain: Sharp Severity: Mild Pain Level: 1 Associated symptoms: Other Exacerbated by: Denies Relieved by: Denies Similar symptoms previously: Yes Recently seen / treated by doctor: No - Related Data Allergies/Adverse Reactions: No Known Allergies Allergy (Verified 04/04/17 02:35) Past Medical History - Social History Smoking Status: Current Every Day Smoker Cigarette use (# per day): Yes Chew tobacco use (# tins/day): No Smoking Education Provided: No Family History: Arthritis, CAD, DM, Hyperlipidemia, Hypertension, Malignancy - Past Medical History Cardiac Medical History: Denies: Hx Coronary Artery Disease, Hx Heart Attack, Hx Hypertension Pulmonary Medical History: Denies: Hx Asthma, Hx Bronchitis, Hx COPD, Hx Pneumonia Neurological Medical History: Denies: Hx Cerebrovascular Accident, Hx Seizures Renal/ Medical History: Denies: Hx Peritoneal Dialysis Musculoskeltal Medical History: Denies Hx Arthritis Psychiatric Medical History: Reports: Hx Anxiety, Hx Depression Past Surgical History: Reports: Hx Cardiac Catheterization, Hx Gynecologic Surgery - Emergency D&C, Hx Hysterectomy. Denies: Hx Coronary Artery Bypass Graft, Hx Coronary Stent, Hx Pacemaker - Immunizations Immunizations up to date: Yes Hx Diphtheria, Pertussis, Tetanus Vaccination: Yes Review of Systems - Review of Systems Notes: REVIEW OF SYSTEMS: CONSTITUTIONAL : Denies fever, chills, or sweats. Denies recent illness. EENT: Denies eye, ear, throat, or mouth pain or symptoms. Denies nasal or sinus congestion or discharge. Denies throat, tongue, or mouth swelling or difficulty swallowing. CARDIOVASCULAR: Denies chest pain. Denies palpitations or racing or irregular heart beat. Denies ankle edema. RESPIRATORY: Denies cough, cold, or chest congestion. Denies shortness of breath, difficulty breathing, or wheezing. GASTROINTESTINAL: Admits to abdominal pain GENITOURINARY: Denies difficulty urinating, painful urination, burning, frequency, blood in urine, or discharge. FEMALE GENITOURINARY: Denies vaginal bleeding, heavy or abnormal periods, irregular periods. Denies vaginal discharge or odor. MUSCULOSKELETAL: Denies back or neck pain or stiffness. Denies joint pain or swelling. SKIN: Denies rash, lesions or sores. HEMATOLOGIC : Denies easy bruising or bleeding. LYMPHATIC: Denies swollen, enlarged glands. NEUROLOGICAL: Denies confusion or altered mental status. Denies passing out or loss of consciousness. Denies dizziness or lightheadedness. Denies headache. Denies weakness or paralysis or loss of use of either side. Denies problems with gait or speech. Denies sensory loss, numbness, or tingling. Denies seizures. PSYCHIATRIC: Denies anxiety or stress. Denies depression, suicidal ideation, or homicidal ideation. ALL OTHER SYSTEMS REVIEWED AND NEGATIVE. PHYSICAL EXAMINATION: GENERAL: Well-appearing, well-nourished and in no acute distress. HEAD: Atraumatic, normocephalic. EYES: Pupils equal round and reactive to light, extraocular movements intact, conjunctiva are normal. ENT: Nares patent, oropharynx clear without exudates. Moist mucous membranes. NECK: Normal range of motion, supple without lymphadenopathy LUNGS: Breath sounds clear to auscultation bilaterally and equal. No wheezes rales or rhonchi. HEART: Regular rate and rhythm without murmurs ABDOMEN: Soft, tender just lateral to the umbilicus von the left Female : deferred Musculoskeletal: Normal range of motion, no pitting or edema. No cyanosis. NEUROLOGICAL: Cranial nerves grossly intact. Normal speech, normal gait. Normal sensory, motor exams PSYCH: Normal mood, normal affect. SKIN: Warm, Dry, normal turgor, no rashes or lesions noted. Dictation was performed using [employer] recognition software Physical Exam - Vital signs Vitals: Temp Pulse Resp BP Pulse Ox 97.9 F 79 18 118/58 L 97 06/25/17 23:07 06/25/17 23:07 06/25/17 23:07 06/25/17 23:07 06/25/17 23:07 Course - Re-evaluation Re-evalutation: 06/25/17 23:30 Patient overall looks well, vital signs are stable, lab work pending I believe this may be more intestinal versus renal 06/26/17 01:21 Lab work notes no significant abnormality, patient had a very long discussion regarding her history of constipation irregular bowel movements, I believe this may be more secondary to this as she is afebrile has no white count and overall looks well, very strict return precautions have been provided to her as well as signs of return, both she and significant other very happy with this plan After performing a Medical Screening Examination, I estimate there is LOW risk for ACUTE APPENDICITIS, BOWEL OBSTRUCTION, ACUTE CHOLECYSTITIS, PERFORATED DIVERTICULITIS, INCARCERATED HERNIA, PANCREATITIS, PELVIC INFLAMMATORY DISEASE, PERFORATED ULCER, ECTOPIC , or TUBO-OVARIAN ABSCESS, thus I consider the discharge disposition reasonable. Also, there is no evidence or peritonitis , sepsis, or toxicity. I have reevaluated this patient multiple times and no significant life threatening changes are noted. The patient and I have discussed the diagnosis and risks, and we agree with discharging home with close follow-up with the understanding that symptoms and presentations can change. We also discussed returning to the Emergency Department immediately if new or worsening symptoms occur. We have discussed the symptoms which are most concerning (e.g., bloody stool, fever, changing or worsening pain, vomiting) that necessitate immediate return. - Vital Signs Vital signs: Temp Pulse Resp BP Pulse Ox 97.9 F 79 18 107/63 97 06/25/17 23:07 06/25/17 23:07 06/26/17 00:01 06/26/17 00:01 06/26/17 00:01 - Laboratory Result Diagrams: 06/25/17 23:43 06/25/17 23:43 Laboratory results interpreted by me: 06/25/17 06/26/17 23:43 00:23 Total Protein 6.2 L Urine Blood SMALL H Discharge - Discharge Clinical Impression: Abdominal pain Qualifiers: Abdominal location: left lower quadrant Qualified Code(s): R10.32 - Left lower quadrant pain Constipation Qualifiers: Constipation type: unspecified constipation type Qualified Code(s): K59.00 - Constipation, unspecified Condition: Stable Disposition: HOME, SELF-CARE Instructions: Abdominal Pain ([facility]) Prescriptions: Dicyclomine HCl [Bentyl 20 mg Tablet] 20 mg PO QID #40 tablet Polyethylene Glycol 3350 [Miralax] 119 gm PO DAILY 5 Days #5 powder Referrals: FRANCISCO CHATTERJEE MD [Primary Care Provider] - Follow up tomorrow
[2017-06-25 23:53] LABS: ABSOLUTE BASOPHILS # (AUTO) 0.1 10^3/uL (0.0-0.2); ABSOLUTE EOSINOPHILS # (AUTO) 0.1 10^3/uL (0.0-0.6); ABSOLUTE LYMPHOCYTES (AUTO) 2.4 10^3/uL (0.5-4.7); ABSOLUTE MONOCYTES (AUTO) 0.4 10^3/uL (0.1-1.4); BASOPHILS % (AUTO) 0.7 % (0-2); EOSINOPHILS % (AUTO) 1.5 % (0-6); HEMATOCRIT 42.4 % (36.0-47.0); HEMOGLOBIN 14.3 g/dL (12.0-15.5); LYMPHOCYTES % (AUTO) 29.9 % (13-45); MEAN CORPUSCULAR HEMOGLOBIN 29.6 pg (27.0-33.4); MEAN CORPUSCULAR HGB CONC 33.8 g/dL (32.0-36.0); MEAN CORPUSCULAR VOLUME 88 fl (80-97); MONOCYTES % (AUTO) 5.5 % (3-13); PLATELET COUNT 190 10^3/uL (150-450); RED BLOOD COUNT 4.83 10^6/uL (3.72-5.28); RED CELL DISTRIBUTION WIDTH 13.4 % (11.5-14.0); SEGMENTED NEUTROPHILS % (AUTO) 62.4 % (42-78); TOTAL CELLS COUNTED % (AUTO) 100 %
[2017-06-26 00:14] LABS: ALANINE AMINOTRANSFERASE 20 U/L (9-52); ALBUMIN 4.1 g/dL (3.5-5.0); ALKALINE PHOSPHATASE 47 U/L (38-126); ANION GAP 10 (5-19); ASPARTATE AMINO TRANSFERASE 20 U/L (14-36); BILIRUBIN,DIRECT 0.3 mg/dL (0.0-0.4); BILIRUBIN,TOTAL 0.4 mg/dL (0.2-1.3); BLOOD UREA NITROGEN 12 mg/dL (7-20); CALCIUM 9.2 mg/dL (8.4-10.2); CARBON DIOXIDE 25 mmol/L (22-30); CHLORIDE 107 mmol/L (98-107); GLUCOSE 95 mg/dL (75-110); LIPASE 65.4 U/L (23-300); POTASSIUM 3.8 mmol/L (3.6-5.0); SODIUM 142.2 mmol/L (137-145); TOTAL PROTEIN 6.2 g/dL (6.3-8.2)
[2017-06-26 00:37] LABS: APPEARANCE,URINE CLEAR; BILIRUBIN,URINE NEGATIVE (NEGATIVE); COLOR,URINE YELLOW; GLUCOSE, URINE NEGATIVE (NEGATIVE); KETONES,URINE NEGATIVE (NEGATIVE); LEUKOCYTE ESTERASE,URINE NEGATIVE (NEGATIVE); NITRITE,URINE NEGATIVE (NEGATIVE); PROTEIN,URINE NEGATIVE (NEGATIVE); URINE SPECIFIC GRAVITY 1.016; UROBILINOGEN,URINE NEGATIVE mg/dL (<2.0)
[2017-06-26 01:54] VITALS: BP 101/60
== END 2017-06-26 01:55 | disposition home or self-care (01) ==
LOC: ER 22:38
DX: R10.32 Left lower quadrant pain (principal); K59.00 Constipation, unspecified; F17.210 Nicotine dependence, cigarettes, uncomplicated
CPT/HCPCS: 36415; 80053; 81001; 81025; 83690; 85025; 99284

== ENCOUNTER 2018-12-27 23:41 | Emergency (ER) | payer MEDICAID ==
[2018-12-28 00:03] VITALS: BP 119/64
[2018-12-28] MEDS ORDERED: LIDOCAINE 2% VISCOUS SOLN 20 ML UDCUP PO ONE (00:22)
--- NOTE | 2018-12-28 00:23 | ER Document Report ---
ED ENT - General Chief Complaint: Ear Pain Stated Complaint: LEFT EAR PAIN Time Seen by Provider: 12/27/18 23:57 Primary Care Provider: FRANCISCO CHATTERJEE MD [Primary Care Provider] - Follow up as needed MOMO VICK MD [ACTIVE STAFF] - Follow up as needed Mode of Arrival: Ambulatory Information source: Patient Notes: 38-year-old female presented to ED for complaint of ear pain to the left ear just before coming to the emergency room. She states that her put some sweet oil in the ear but it did not she did not get a lot of relief. She states she had taken some Tylenol with no relief. She states she has had ear infections in the past and this feels like 1 of her ear infections. She states she could feel some popping in her ear. TRAVEL OUTSIDE OF THE [place] IN LAST 30 DAYS: No - Related Data Allergies/Adverse Reactions: No Known Allergies Allergy (Verified 08/20/18 05:44) Past Medical History - General Information source: Patient - Social History Smoking Status: Never Smoker Frequency of alcohol use: None Drug Abuse: None Lives with: Family Family History: Arthritis, CAD, DM, Hyperlipidemia, Hypertension, Malignancy Patient has suicidal ideation: No Patient has homicidal ideation: No - Past Medical History Cardiac Medical History: Reports: None Pulmonary Medical History: Reports: None EENT Medical History: Reports: None Neurological Medical History: Reports: None Endocrine Medical History: Reports: None Renal/ Medical History: Reports: None Malignancy Medical History: Reports: None GI Medical History: Reports: None Musculoskeletal Medical History: Reports None Skin Medical History: Reports None Psychiatric Medical History: Reports: Hx Anxiety, Hx Depression Traumatic Medical History: Reports: None Infectious Medical History: Reports: None Past Surgical History: Reports: Hx Cardiac Catheterization, Hx Gynecologic Surgery - Emergency D&C, Hx Hysterectomy - Immunizations Immunizations up to date: Yes Hx Diphtheria, Pertussis, Tetanus Vaccination: Yes Review of Systems - Review of Systems Constitutional: No symptoms reported EENT: Ear pain, Nose discharge Cardiovascular: No symptoms reported Respiratory: No symptoms reported Gastrointestinal: No symptoms reported Genitourinary: No symptoms reported Female Genitourinary: No symptoms reported Musculoskeletal: No symptoms reported Skin: No symptoms reported Hematologic/Lymphatic: No symptoms reported Neurological/Psychological: No symptoms reported -: Yes All other systems reviewed and negative Physical Exam - Vital signs Vitals: Temp Pulse Resp BP Pulse Ox 98.1 F 74 18 119/64 100 12/28/18 00:02 12/28/18 00:02 12/28/18 00:02 12/28/18 00:02 12/28/18 00:02 Interpretation: Normal - General General appearance: Appears well, Alert - HEENT Head: Normocephalic, Atraumatic Eyes: Normal Pupils: PERRL Ears: Normal External canal: Normal Tympanic membrane: Normal Sinus: Normal Nasal: Swelling, Clear rhinorrhea Mouth/Lips: Normal Mucous membranes: Normal Pharynx: Normal Neck: Normal - Respiratory Respiratory status: No respiratory distress Chest status: Nontender Breath sounds: Normal Chest palpation: Normal - Cardiovascular Rhythm: Regular Heart sounds: Normal auscultation Murmur: No - Abdominal Inspection: Normal Distension: No distension Bowel sounds: Normal Tenderness: Nontender Organomegaly: No organomegaly - Back Back: Normal, Nontender - Extremities General upper extremity: Normal inspection, Nontender, Normal color, Normal ROM, Normal temperature General lower extremity: Normal inspection, Nontender, Normal color, Normal ROM, Normal temperature, Normal weight bearing. No: Nelida's sign - Neurological Neuro grossly intact: Yes Cognition: Normal Orientation: AAOx4 Sabiha Coma Scale Eye Opening: Spontaneous Sabiha Coma Scale Verbal: Oriented Sabiha Coma Scale Motor: Obeys Commands Sabiha Coma Scale Total: 15 Speech: Normal Motor strength normal: LUE, RUE, LLE, RLE Sensory: Normal - Psychological Associated symptoms: Normal affect, Normal mood - Skin Skin Temperature: Warm Skin Moisture: Dry Skin Color: Normal Course - Re-evaluation Re-evalutation: 12/29/18 02:17 After performing a Medical Screening Examination, I estimate there is LOW risk for ACUTE CORONARY SYNDROME, RESPIRATORY FAILURE, SEPSIS OR MENINGITIS, thus I consider the discharge disposition reasonable. I have reevaluated this patient multiple times and no significant life threatening changes are noted. The patient and I have discussed the diagnosis and risks, and we agree with discharging home with close follow-up. We also discussed returning to the Emergency Department immediately if new or worsening symptoms occur. We have discussed the symptoms which are most concerning (e.g., changing or worsening pain, trouble swallowing or breathing, neck stiffness, fever) that necessitate immediate return. Otalgia to the left ear. She was treated with some viscous lidocaine into the ear with some relief. She was instructed on use of Tylenol for pain. She was instructed to follow-up with her primary care and a ears nose and throat specialist. - Vital Signs Vital signs: Temp Pulse Resp BP Pulse Ox 98.1 F 74 18 119/64 100 12/28/18 00:02 12/28/18 00:02 12/28/18 00:02 12/28/18 00:02 12/28/18 00:02 Discharge - Discharge Clinical Impression: Otalgia, left ear Condition: Stable Disposition: HOME, SELF-CARE Additional Instructions: You were seen tonight for left ear pain. Ear assessment is negative. There is no redness inflammation or signs of infection. Ibuprofen Ibuprofen is an excellent, safe drug for pain control. In addition, it has potent antiinflammatory effects which are beneficial, especially in the treatment of injuries, arthritis, or tendonitis. It's best to take ibuprofen with food. Persons with ulcer disease or allergy to aspirin should notify their physician of this before taking ibuprofen. Take the medication exactly as prescribed. Don't take additional doses unless instructed to do so by your doctor. If you develop wheezing, shortness of breath, hives, faintness, stomach pain, vomiting, or dark black stools, return for re-evaluation at once. I have given you a syringe of viscous lidocaine. You could put 1 cc of lidocaine in your ear every 4-6 hours as needed for pain. Please follow-up with the ears nose and throat doctor tomorrow if your pain continues. FOLLOW-UP CARE: If you have been referred to a physician for follow-up care, call the physicians office for an appointment as you were instructed or within the next two days. If you experience worsening or a significant change in your symptoms, notify the physician immediately or return to the Emergency Department at any time for re-evaluation. Forms: Smoking Cessation Education, Return to Work Referrals: FRANCISCO CHATTERJEE MD [Primary Care Provider] - Follow up as needed MOMO VICK MD [ACTIVE STAFF] - Follow up as needed
== END 2018-12-28 00:35 | disposition home or self-care (01) ==
LOC: ER 23:41
DX: H92.02 Otalgia, left ear (principal)
CPT/HCPCS: 99282; J3490

== ENCOUNTER 2019-05-08 00:08 | Emergency (ER) | payer MEDICAID ==
[2019-05-08 00:48] LABS: ABSOLUTE BASOPHILS # (AUTO) 0.1 10^3/uL (0.0-0.2); ABSOLUTE EOSINOPHILS # (AUTO) 0.2 10^3/uL (0.0-0.6); ABSOLUTE LYMPHOCYTES (AUTO) 3.6 10^3/uL (0.5-4.7); ABSOLUTE MONOCYTES (AUTO) 0.7 10^3/uL (0.1-1.4); ABSOLUTE NEUT (AUTO) 7.3 10^3/uL (1.7-8.2); BASOPHILS % (AUTO) 0.5 % (0-2); EOSINOPHILS % (AUTO) 1.4 % (0-6); HEMATOCRIT 42.3 % (36.0-47.0); HEMOGLOBIN 14.7 g/dL (12.0-15.5); LYMPHOCYTES % (AUTO) 30.5 % (13-45); MEAN CORPUSCULAR HEMOGLOBIN 30.8 pg (27.0-33.4); MEAN CORPUSCULAR HGB CONC 34.7 g/dL (32.0-36.0); MEAN CORPUSCULAR VOLUME 89 fl (80-97); MONOCYTES % (AUTO) 5.9 % (3-13); PLATELET COUNT 239 10^3/uL (150-450); RED BLOOD COUNT 4.77 10^6/uL (3.72-5.28); SEGMENTED NEUTROPHILS % (AUTO) 61.7 % (42-78); TOTAL CELLS COUNTED % (AUTO) 100 %; WHITE BLOOD COUNT 11.8 10^3/uL (4.0-10.5)
[2019-05-08 01:05] LABS: ALBUMIN 4.8 g/dL (3.5-5.0); ALKALINE PHOSPHATASE 46 U/L (38-126); ANION GAP 9 (5-19); ASPARTATE AMINO TRANSFERASE 19 U/L (14-36); BILIRUBIN,DIRECT 0.3 mg/dL (0.0-0.4); BILIRUBIN,TOTAL 0.5 mg/dL (0.2-1.3); BLOOD UREA NITROGEN 20 mg/dL (7-20); CALCIUM 9.8 mg/dL (8.4-10.2); CARBON DIOXIDE 30 mmol/L (22-30); CHLORIDE 102 mmol/L (98-107); GLUCOSE 114 mg/dL (75-110); TOTAL PROTEIN 7.8 g/dL (6.3-8.2)
--- NOTE | 2019-05-08 02:57 | ER Document Report ---
ED General - General Chief Complaint: Dizziness Stated Complaint: DIZZINESS Time Seen by Provider: 05/08/19 02:10 Primary Care Provider: FRANCISCO CHATTERJEE MD [Primary Care Provider] - Follow up as needed TRAVEL OUTSIDE OF THE [place] IN LAST 30 DAYS: No - HPI Notes: Patient is a 38-year-old female who presents to the emergency department for evaluation. She has been traveling the last several days, admits her diet has been poor. She went home, noticed some nausea and some mild cramping in her abdomen. She went in and took a hot shower. Following this she became very dizzy. She states she almost felt as if she were drunk. She felt like she was going to pass out. She yelled out for help. She went and laid on the bed and she was shaking all over. She was awake and alert during these episodes. She was cooperative and talkative. The shaking episodes seem to go in different places throughout the body. She denies any sensation that she was cold. These tremors stopped while in route here with EMS. Otherwise the patient denies any difficulty speaking or swallowing. She is moving her arms and legs without difficulty. No fevers. No chest pain or difficulty breathing. She denies any dysuria. She has had a partial hysterectomy. - Related Data Allergies/Adverse Reactions: No Known Allergies Allergy (Verified 08/20/18 05:44) Home Medications: trazadone, valium, temazepam Past Medical History - General Information source: Patient - Social History Smoking Status: Current Every Day Smoker Family History: Arthritis, CAD, DM, Hyperlipidemia, Hypertension, Malignancy Patient has suicidal ideation: No Patient has homicidal ideation: No - Past Medical History Cardiac Medical History: Denies: Hx Coronary Artery Disease, Hx Heart Attack, Hx Hypertension Pulmonary Medical History: Denies: Hx Asthma, Hx Bronchitis, Hx COPD, Hx Pneumonia Neurological Medical History: Denies: Hx Cerebrovascular Accident, Hx Seizures Renal/ Medical History: Denies: Hx Peritoneal Dialysis Musculoskeletal Medical History: Denies Hx Arthritis Psychiatric Medical History: Reports: Hx Anxiety, Hx Depression, Other - Insomnia Past Surgical History: Reports: Hx Cardiac Catheterization, Hx Gynecologic Surgery - Emergency D&C, Hx Hysterectomy. Denies: Hx Coronary Artery Bypass Graft, Hx Coronary Stent, Hx Pacemaker - Immunizations Immunizations up to date: Yes Hx Diphtheria, Pertussis, Tetanus Vaccination: Yes Review of Systems - Review of Systems Constitutional: See HPI Neurological/Psychological: See HPI -: Yes All other systems reviewed and negative Physical Exam - Vital signs Vitals: Pulse Ox 100 05/08/19 00:16 - Notes Notes: This is a pleasant 38-year-old female who appears her stated age, no acute distress. Vital signs reviewed, please refer to chart. Head is normocephalic, atraumatic. Pupils equal round, reactive to light. Neck is supple without meningismus. Heart is regular rate and rhythm. Lungs are clear to auscultation bilaterally. Abdomen is soft, nontender, normoactive bowel sounds throughout. Extremities without cyanosis, clubbing. Posterior calves are nontender. Peripheral pulses are equal. Skin is warm and dry. Patient is awake, alert, oriented x3. Cranial nerves II - XII are grossly intact without focal neurological deficits. Strength is plus 5 out of 5 bilateral upper and lower extremities. Sensation is intact. Reflexes symmetrical. Intact [id number], rapid alternating movements, [id number]. Course - Re-evaluation Re-evalutation: 05/08/19 03:00 Patient presents to the emergency department for evaluation. Given her nausea, abdominal cramping, hot shower, dizziness, strongly suspect vasovagal syncope is the etiology of all this patient's symptoms. Here she is given IV fluids. Her laboratory investigations are unremarkable. She is feeling back to baseline, does not have any other symptoms. She is told to rest, stay well-hydrated. She is to follow-up with primary care this week, return to the emergency department for worsening or new concerning symptoms of any sort. - Vital Signs Vital signs: Temp Pulse Resp BP Pulse Ox 98.7 F 19 99/60 L 99 05/08/19 00:35 05/08/19 02:01 05/08/19 02:00 05/08/19 02:01 - Laboratory Result Diagrams: 05/08/19 00:05 05/08/19 00:05 Laboratory results interpreted by me: 05/08/19 05/08/19 00:05 00:05 WBC 11.8 H Glucose 114 H - EKG Interpretation by Me Additional EKG results interpreted by me: 05/08/19 03:00 Sinus mechanism with a rate of 70 bpm. Normal axis and intervals. No acute ST changes concerning for ischemia or infarction. Discharge - Discharge Clinical Impression: Near syncope Condition: Stable Disposition: HOME, SELF-CARE Instructions: Dizziness ([facility]), Near Syncopal Episode ([facility]) Additional Instructions: Rest, stay well-hydrated. Follow-up with primary care this week. Return to the emergency department for worsening or new concerning symptoms of any sort. Referrals: FRANCISCO CHATTERJEE MD [Primary Care Provider] - Follow up as needed
[2019-05-08 03:17] VITALS: BP 101/60
--- NOTE | 2019-05-08 07:11 | EKG REPORT ---
SEVERITY:- BORDERLINE ECG - SINUS RHYTHM BORDERLINE T ABNORMALITIES, ANT-LAT LEADS : Confirmed by: Christiano Ferrer MD 08-May-2019 07:11:07
== END 2019-05-08 03:17 | disposition home or self-care (01) ==
LOC: ER 00:08
DX: R55 Syncope and collapse (principal); R42 Dizziness and giddiness; R10.84 Generalized abdominal pain; F17.200 Nicotine dependence, unspecified, uncomplicated; Z90.710 Acquired absence of both cervix and uterus
CPT/HCPCS: 36415; 80053; 85025; 93005; 93010; 99284